=== PATIENT | female | born 1930 | race Caucasian/White ===

== ENCOUNTER → 2016-12-26 | Outpatient (CLI) | payer MEDICARE | END | disposition home or self-care (01) | LOC: RADECHMAIN 11:58 | PROVIDERS: ATTEND Internal Medicine | DX: I44.0 Atrioventricular block, first degree (principal); R00.1 Bradycardia, unspecified; R00.0 Tachycardia, unspecified | CPT/HCPCS: 93225; 93226 ==

== ENCOUNTER 2017-03-11 18:32 | Inpatient (IN) | payer MEDICARE ==
[2017-03-11] MEDS ORDERED: SODIUM CHLORIDE 0.9% 1,000 ML IV STA (18:50)
[2017-03-11] MEDS ORDERED: SODIUM CHLORIDE 0.9% 500 ML IV STA ×2 (18:50→19:36)
--- NOTE | 2017-03-11 18:53 | ED ---
Syncope HPI - General Source: patient, family, RN notes reviewed Mode of arrival: wheelchair Limitations: no limitations - History of Present Illness MD Complaint: loss of consciousness, felt faint <Karan Nascimento - Last Filed: 03/11/17 20:47> <Ramakrishna Donohue - Last Filed: 03/11/17 23:02> - General Chief Complaint: Dizziness Stated Complaint: syncope, Time Seen by Provider: 03/11/17 18:42 - History of Present Illness Initial Comments: This is a 86-year-old female with a history of prior episodes of passing out also history of a mastectomy about 5 years ago history of chemo or radiation with that who was at [facility]. She got out of the bathroom a.m. possibly passed out. She has no recall of this. She does not recall any headache dizziness blurry vision palpitations or other symptoms she was brought in by private vehicle by her patient is had no symptoms since no complaints of focal weakness headache blurry vision. She did take her medication today and an empty stomach. It is unclear per of this had anything to do with it. (Karan Nascimento) - Related Data Home Medications Medication Instructions Recorded Confirmed Aspirin EC [Ecotrin Low Dose] 81 mg PO DAILY 03/11/17 03/11/17 Cyanocobalamin [Vitamin B-12 1,000 mcg SQ WE 03/11/17 03/11/17 Injection] Cyanocobalamin [Vitamin B-12] 500 mcg PO DAILY 03/11/17 03/11/17 Levothyroxine Sodium [Synthroid] 125 mcg PO DAILY 03/11/17 03/11/17 Multivitamins, Thera [Multivitamin 1 tab PO DAILY 03/11/17 03/11/17 (formulary)] Allergies Allergy/AdvReac Type Severity Reaction Status Date / Time meperidine [From Demerol] Allergy Rash/Hives Verified 03/11/17 19:09 Review of Systems ROS Other: All systems not noted in ROS Statement are negative. <Karan Nascimento - Last Filed: 03/11/17 20:47> ROS Other: All systems not noted in ROS Statement are negative. <Ramakrishna Donohue - Last Filed: 03/11/17 23:02> ROS Statement: Those systems with pertinent positive or pertinent negative responses have been documented in the HPI. Past Medical History Past Medical History: Thyroid Disorder History of Any Multi-Drug Resistant Organisms: None Reported Past Surgical History: Hysterectomy Additional Past Surgical History / Comment(s): left masectomy Past Psychological History: No Psychological Hx Reported Smoking Status: Never smoker Past Alcohol Use History: None Reported Past Drug Use History: None Reported <Karan Nascimento - Last Filed: 03/11/17 20:47> General Exam Limitations: no limitations General appearance: alert, in no apparent distress Head exam: Present: atraumatic, normocephalic, normal inspection Eye exam: Present: normal appearance, PERRL, EOMI. Absent: scleral icterus, conjunctival injection, periorbital swelling ENT exam: Present: mucous membranes dry Neck exam: Present: normal inspection. Absent: tenderness, meningismus, lymphadenopathy Respiratory exam: Present: normal lung sounds bilaterally. Absent: respiratory distress, wheezes, rales, rhonchi, stridor Cardiovascular Exam: Present: regular rate, normal rhythm, normal heart sounds. Absent: systolic murmur, diastolic murmur, rubs, gallop, clicks GI/Abdominal exam: Present: soft, normal bowel sounds. Absent: distended, tenderness, guarding, rebound, rigid Extremities exam: Present: normal inspection, full ROM, normal capillary refill. Absent: tenderness, pedal edema, joint swelling, calf tenderness Back exam: Present: normal inspection Neurological exam: Present: alert, oriented X3, CN II-XII intact Psychiatric exam: Present: normal affect, normal mood Skin exam: Present: warm, dry, intact, normal color. 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 Donohue who will make about disposition (Karan Nascimento) EKG Findings - EKG Results: EKG: interpreted by ERMD, sinus rhythm (Sinus rhythm a rate of 67 DC interval 156 QRS 132 QT since QTC of 426/450 with exodeviation right bundle-branch block no acute ST-T wave changes.) <Karan Nascimento - Last Filed: 03/11/17 20:47> Medical Decision Making - Lab Data Result diagrams: 03/11/17 19:00 03/11/17 19:00 <Karan Nascimento - Last Filed: 03/11/17 20:47> - Lab Data Result diagrams: 03/11/17 19:00 03/11/17 19:00 - Radiology Data Radiology results: report reviewed (Computed tomography scan of the brain shows no acute process.), image reviewed (Chest x-ray shows no acute process) <Ramakrishna Donohue - Last Filed: 03/11/17 23:02> - Medical Decision Making Patient reevaluated and resting comfortably in bed. Patient symptom-free at this time. Patient was at [facility] and got up to use the restroom. Patient then passed out. Some onset. Patient does not recall the episode and does not have symptoms prior to this. Case was discussed in detail with Dr. Hargrove, who will admit for Dr. Chen. She recommends cardiology consult, no neurology consult at this time however would like EEG and CT of the neck. Patient and family were updated. (Ramakrishna Donohue) - Lab Data Lab Results 03/11/17 03/11/17 03/11/17 Range/Units 19:00 19:00 19:00 WBC 7.3 (3.8-10.6) k/uL RBC 4.69 (3.80-5.40) m/uL Hgb 14.4 (11.4-16.0) gm/dL Hct 40.8 (34.0-46.0) % MCV 87.0 (80.0-100.0) fL MCH 30.6 (25.0-35.0) pg MCHC 35.2 (31.0-37.0) g/dL RDW 12.9 (11.5-15.5) % Plt Count 306 (150-450) k/uL Neutrophils % 41 % Lymphocytes % 38 % Monocytes % 8 % Eosinophils % 7 % Basophils % 1 % Neutrophils # 3.0 (1.3-7.7) k/uL Lymphocytes # 2.8 (1.0-4.8) k/uL Monocytes # 0.6 (0-1.0) k/uL Eosinophils # 0.5 (0-0.7) k/uL Basophils # 0.1 (0-0.2) k/uL Sodium 135 L (137-145) mmol/L Potassium 4.6 (3.5-5.1) mmol/L Chloride 102 (98-107) mmol/L Carbon Dioxide 22 (22-30) mmol/L Anion Gap 11 mmol/L BUN 27 H (7-17) mg/dL Creatinine 1.44 H (0.52-1.04) mg/dL Est GFR (MDRD) Af Amer 42 (>60 ml/min/1.73 sqM) Est GFR (MDRD) Non-Af 35 (>60 ml/min/1.73 sqM) Glucose 115 H (74-99) mg/dL POC Glucose (mg/dL) (75-99) mg/dL POC Glu Liquid Hydrogen Plant Operator ID Calcium 9.9 (8.4-10.2) mg/dL Magnesium 2.2 (1.6-2.3) mg/dL Total Bilirubin 0.4 (0.2-1.3) mg/dL AST 24 (14-36) U/L ALT 41 (9-52) U/L Alkaline Phosphatase 62 (38-126) U/L Total Creatine Kinase 30 (30-135) U/L CK-MB (CK-2) 0.3 (0.0-2.4) ng/mL CK-MB (CK-2) Rel Index 1.0 Troponin I <0.012 (0.000-0.034) ng/mL Total Protein 7.2 (6.3-8.2) g/dL Albumin 4.0 (3.5-5.0) g/dL Urine Color Urine Appearance (Clear) Urine pH (5.0-8.0) Ur Specific [place] (1.001-1.035) Urine Protein (Negative) Urine Glucose (UA) (Negative) Urine Ketones (Negative) Urine Blood (Negative) Urine Nitrite (Negative) Urine Bilirubin (Negative) Urine Urobilinogen (<2.0) mg/dL Ur Leukocyte Esterase (Negative) Urine RBC (0-5) /hpf Urine WBC (0-5) /hpf Ur Squamous Epith Cells (0-4) /hpf Urine Bacteria (None) /hpf Hyaline Casts (0-2) /lpf Urine Mucus (None) /hpf 03/11/17 03/11/17 Range/Units 19:03 21:10 WBC (3.8-10.6) k/uL RBC (3.80-5.40) m/uL Hgb (11.4-16.0) gm/dL Hct (34.0-46.0) % MCV (80.0-100.0) fL MCH (25.0-35.0) pg MCHC (31.0-37.0) g/dL RDW (11.5-15.5) % Plt Count (150-450) k/uL Neutrophils % % Lymphocytes % % Monocytes % % Eosinophils % % Basophils % % Neutrophils # (1.3-7.7) k/uL Lymphocytes # (1.0-4.8) k/uL Monocytes # (0-1.0) k/uL Eosinophils # (0-0.7) k/uL Basophils # (0-0.2) k/uL Sodium (137-145) mmol/L Potassium (3.5-5.1) mmol/L Chloride (98-107) mmol/L Carbon Dioxide (22-30) mmol/L Anion Gap mmol/L BUN (7-17) mg/dL Creatinine (0.52-1.04) mg/dL Est GFR (MDRD) Af Amer (>60 ml/min/1.73 sqM) Est GFR (MDRD) Non-Af (>60 ml/min/1.73 sqM) Glucose (74-99) mg/dL POC Glucose (mg/dL) 113 H (75-99) mg/dL POC Glu Liquid Hydrogen Plant Operator ID McDaid, Kandis Calcium (8.4-10.2) mg/dL Magnesium (1.6-2.3) mg/dL Total Bilirubin (0.2-1.3) mg/dL AST (14-36) U/L ALT (9-52) U/L Alkaline Phosphatase (38-126) U/L Total Creatine Kinase (30-135) U/L CK-MB (CK-2) (0.0-2.4) ng/mL CK-MB (CK-2) Rel Index Troponin I (0.000-0.034) ng/mL Total Protein (6.3-8.2) g/dL Albumin (3.5-5.0) g/dL Urine Color Yellow Urine Appearance Clear (Clear) Urine pH 5.5 (5.0-8.0) Ur Specific [place] 1.014 (1.001-1.035) Urine Protein Negative (Negative) Urine Glucose (UA) Negative (Negative) Urine Ketones Trace H (Negative) Urine Blood Negative (Negative) Urine Nitrite Negative (Negative) Urine Bilirubin Negative (Negative) Urine Urobilinogen <2.0 (<2.0) mg/dL Ur Leukocyte Esterase Trace H (Negative) Urine RBC <1 (0-5) /hpf Urine WBC 2 (0-5) /hpf Ur Squamous Epith Cells <1 (0-4) /hpf Urine Bacteria Occasional H (None) /hpf Hyaline Casts 4 H (0-2) /lpf Urine Mucus Rare H (None) /hpf Disposition <Karan Nascimento - Last Filed: 03/11/17 20:47> <Ramakrishna Donohue - Last Filed: 03/11/17 23:02> Clinical Impression: Syncope Disposition: ADMITTED IP TO THIS HOSP Referrals: Caden Chen MD [Primary Care Provider] - 1-2 days
[2017-03-11 19:05] LABS: Glucose,Whole Blood 113 mg/dL (75-99)
[2017-03-11 19:10] LABS: Basophils # (A) 0.1 k/uL (0-0.2); Basophils % (A) 1 %; CH 30.5; CHCM 35.2; Eosinophils # (A) 0.5 k/uL (0-0.7); Eosinophils % (A) 7 %; HCT 40.8 % (34.0-46.0); HDW 2.78; HGB 14.4 gm/dL (11.4-16.0); Luc % (Auto) 4; Lymphocytes # (A) 2.8 k/uL (1.0-4.8); Lymphocytes % (A) 38 %; MCH 30.6 pg (25.0-35.0); MCHC 35.2 g/dL (31.0-37.0); Mean Platelet Volume 6.6; Monocytes # (A) 0.6 k/uL (0-1.0); Monocytes % (A) 8 %; Neutrophils % (A) 41 %; RBC 4.69 m/uL (3.80-5.40); RDW 12.9 % (11.5-15.5); WBC 7.3 k/uL (3.8-10.6); WBC (Perox) 7.15
[2017-03-11 19:21] LABS: Calcium 9.9 mg/dL (8.4-10.2); Magnesium 2.2 mg/dL (1.6-2.3); Potassium 4.6 mmol/L (3.5-5.1); Total Bilirubin 0.4 mg/dL (0.2-1.3); Total Protein 7.2 g/dL (6.3-8.2)
[2017-03-11 19:33] LABS: Creatine Kinase 30 U/L (30-135)
[2017-03-11 19:44] LABS: Creatine Kinase MB 0.3 ng/mL (0.0-2.4); Troponin I <0.012 ng/mL (0.000-0.034)
--- NOTE | 2017-03-11 19:53 | XR ---
EXAMINATION TYPE: XR chest 2V DATE OF EXAM: 03/11/2017 COMPARISON: Prior chest x-ray 01/17/2013 HISTORY: Cough and weakness TECHNIQUE: Frontal and lateral views of the chest are obtained. FINDINGS: Technique is apical lordotic and rotated. There is no focal air space opacity, pleural effu omid, or pneumothorax seen. The cardiac silhouette size is thought to be stable, rotation may accent uate the appearance. The osseous structures are intact. IMPRESSION: No acute cardiopulmonary process. Difficult to exclude cardiomegaly.
--- NOTE | 2017-03-11 20:22 | CT ---
EXAMINATION TYPE: CT brain wo con DATE OF EXAM: 03/11/2017 COMPARISON: Prior head CT 08/25/2012 HISTORY: Dizziness and syncope. CT DLP: 949.40 mGycm Automated exposure control for dose reduction was used. Helical imaging through the brain. FINDINGS: Exam is stable. There is extensive cortical atrophy, cerebral vascular calcifications are present. Pe riventricular white matter shows patchy low attenuation. There is no hemorrhage or hydrocephalus. The calvarium is intact. 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 IMPRESSION: NO ACUTE ABNORMALITY.
[2017-03-11 21:20] LABS: Appearance,Urine Clear (Clear); Bacteria,Urine Occasional /hpf; Bilirubin,Urine Negative (Negative); Glucose,Urine (UA) Negative (Negative); Ketones,Urine Trace (Negative); Leukocyte Esterase,Urine Trace (Negative); Mucus,Urine Rare /hpf; Nitrite,Urine Negative (Negative); PH, Urine 5.5 (5.0-8.0); Particle Count 8498; Protein,Urine Negative (Negative); RBC,Urine <1 /hpf (0-5); Specific Gravity,Urine 1.014 (1.001-1.035); Squamous Epithelial Cell,Urine <1 /hpf (0-4); UA Billing (MACRO vs. MICRO) MICRO; Urobilinogen,Urine <2.0 mg/dL (<2.0); WBC,Urine 2 /hpf (0-5)
[2017-03-11] MEDS ORDERED: NALOXONE 0.4 MG/ML 1 ML VIAL IV PRN (23:03)
[2017-03-11] MEDS ORDERED: RX INFO: IV CONTRAST WAS GIVEN 1 EACH MISC MISCELLANE PRN (23:04)
--- NOTE | 2017-03-11 23:55 | CT ---
EXAM: CT Angiography Neck With Intravenous Contrast CLINICAL HISTORY: Reason: syncope TECHNIQUE: Axial computed tomographic angiography images of the neck with intravenous contrast using CT angiography protocol. This CT exam was performed using one or more of the following dose reduction techniques: automated exposure control, adjustment of the mA and/or kV according to patient size, and/or use of iterative reconstruction technique. MIP reconstructed images were created and reviewed. Dose Length Product (DLP) is 228.90 mGy-cm. CONTRAST: 80 mL of Visipaque 320 administered intravenously. COMPARISON: No relevant prior studies available. FINDINGS: VASCULATURE: Right common carotid artery: Unremarkable. No significant stenosis. No dissection or occlusion. 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 There is osseous remodeling of the adjacent right temporal bone. Large atherosclerotic plaques are seen around the aneurysm sac. Extracranial segment is patent with no significant stenosis. No dissection or occlusion. Right external carotid artery: Unremarkable. No occlusion. Right vertebral artery: Unremarkable. No significant stenosis. No dissection or occlusion. Left common carotid artery: Unremarkable. No significant stenosis. No dissection or occlusion. Left internal carotid artery: Unremarkable. Extracranial segment is patent with no significant stenosis. No dissection or occlusion. Left external carotid artery: Unremarkable. No occlusion. Left vertebral artery: Unremarkable. No significant stenosis. No dissection or occlusion. NECK: Bones/joints: No acute fracture. No dislocation. Soft tissues: Unremarkable as visualized. No mass. CAROTID STENOSIS REFERENCE USING NASCET CRITERIA: % ICA stenosis = (1 - narrowest ICA diameter/diameter of distal cervical ICA) x 100. Mild - <50% stenosis. Moderate - 50-69% stenosis. Severe - 70-94% stenosis. Near occlusion - 95-99% stenosis. Occluded - 100% stenosis. 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
[2017-03-12 00:39] VITALS: BMI 24.4
[2017-03-12] MEDS: SODIUM CHLORIDE 0.9% 1,000 ML IV SCH (00:58)
[2017-03-12 02:35] LABS: Creatine Kinase 23 U/L (30-135)
[2017-03-12 02:47] LABS: Creatine Kinase MB 0.3 ng/mL (0.0-2.4); Troponin I <0.012 ng/mL (0.000-0.034)
[2017-03-12 06:30] LABS: Anion Gap 7 mmol/L; Blood Urea Nitrogen 20 mg/dL (7-17); Calcium 9.2 mg/dL (8.4-10.2); Carbon Dioxide 17 mmol/L (22-30); Chloride 111 mmol/L (98-107); Glucose 93 mg/dL (74-99); Non-African American GFR(MDRD) 53 (>60 ml/min/1.73 sqM); Potassium 4.3 mmol/L (3.5-5.1); Sodium 135 mmol/L (137-145)
[2017-03-12 06:35] LABS: Creatine Kinase 23 U/L (30-135)
[2017-03-12 06:47] LABS: Creatine Kinase MB 0.3 ng/mL (0.0-2.4); Troponin I <0.012 ng/mL (0.000-0.034)
--- NOTE | 2017-03-12 09:12 | P.CRDCN ---
History of Present Illness Consult date: 03/12/17 Consult reason: sycope History of present illness: 86-year-old lady with history of mild dementia comes to Hospital having had an episode of syncope. Patient was at [facility] yesterday she went to the bathroom and was brought back probably having had a syncope is not quite sure not raised the the patient. There is no bladder bowel incontinence she doesn't have chest pain she doesn't have focal neurological deficits EKG shows sinus rhythm with right bundle branch block. Since being admitted she is doing well and did not have documented tachycardia or bradycardia arrhythmias. Review of Systems Constitutional: Denies chills. Denies fever. Eyes: Denies blurred vision. Denies pain. Ears, nose, mouth and throat: Denies headache. Denies sore throat. Cardiovascular: Denies chest pain. Denies shortness of breath. Respiratory: Denies cough. Gastrointestinal: Denies abdominal pain. Denies diarrhea. Denies nausea. Denies vomiting. Musculoskeletal: Denies myalgias. Integumentary: Denies pruritus. Denies rash. Neurological: Denies numbness. Denies weakness. Syncope impaired memory Psychiatric: Denies anxiety. Denies depression. Endocrine: Denies fatigue. Denies weight change. Genitourinary: Denies burning, hematuria, frequency of urination. Hematological: No anemia or excess bleeding. Past Medical History Past Medical History: Cancer, Thyroid Disorder Additional Past Medical History / Comment(s): Breast History of Any Multi-Drug Resistant Organisms: None Reported Past Surgical History: Hysterectomy Additional Past Surgical History / Comment(s): left masectomy Past Anesthesia/Blood Transfusion Reactions: No Reported Reaction Past Psychological History: No Psychological Hx Reported Smoking Status: Never smoker Past Alcohol Use History: None Reported Past Drug Use History: None Reported - Past Family History Father Family Medical History: Cancer Additional Family Medical History / Comment(s): Lung Mother Family Medical History: Cancer Additional Family Medical History / Comment(s): Colon metastasize to liver Sister(s) Family Medical History: Cancer Additional Family Medical History / Comment(s): Breast Medications and Allergies Home Medications Medication Instructions Recorded Confirmed Type Aspirin EC [Ecotrin Low Dose] 81 mg PO DAILY 03/11/17 03/11/17 History Cyanocobalamin [Vitamin B-12 1,000 mcg SQ WE 03/11/17 03/11/17 History Injection] Cyanocobalamin [Vitamin B-12] 500 mcg PO DAILY 03/11/17 03/11/17 History Levothyroxine Sodium [Synthroid] 125 mcg PO DAILY 03/11/17 03/11/17 History Multivitamins, Thera [Multivitamin 1 tab PO DAILY 03/11/17 03/11/17 History (formulary)] Allergies Allergy/AdvReac Type Severity Reaction Status Date / Time meperidine [From Demerol] Allergy Rash/Hives Verified 03/11/17 19:09 Physical Exam Vitals: Vital Signs Temp Pulse Pulse Pulse Pulse Resp BP 03/12/17 08:00 96.8 F L 76 18 03/12/17 07:55 03/12/17 04:00 97.2 F L 89 20 03/12/17 00:14 98.6 F 72 18 03/11/17 22:51 66 16 142/77 03/11/17 20:41 71 18 152/55 03/11/17 19:40 62 68 03/11/17 18:37 98.2 F 69 16 131/64 BP BP BP Pulse Ox 03/12/17 08:00 143/64 98 03/12/17 07:55 98 03/12/17 04:00 160/72 95 03/12/17 00:14 137/61 97 03/11/17 22:51 96 03/11/17 20:41 96 03/11/17 19:40 114/63 119/58 03/11/17 18:37 97 Intake and Output 03/11/17 03/12/17 03/12/17 22:59 06:59 14:59 Intake Total 450 180 Balance 450 180 Intake: IV 450 Sodium Chloride 0.9% 1, 450 000 ml @ 75 mls/hr IV . [id number] STA Rx#:[id number] Oral 180 Other: Voiding Method Toilet # Voids 2 Weight 63.503 kg 64.6 kg General: The patient is awake and alert, in no distress, and does not appear acutely ill. Skin: Skin is warm and dry and no rashes or lesions are noted. Eye: Pupils are equal, round and reactive to light, extra-ocular movements are intact; there is normal conjunctiva bilaterally. Ears, nose, mouth and throat: There are moist mucous membranes and no oral lesions. Neck: The neck is supple, there is no tenderness or JVD. Cardiovascular: There is a regular rate and rhythm. Ejection systolic murmur in the aortic area. Respiratory: Lungs are clear to auscultation, respirations are non-labored, breath sounds are equal. Gastrointestinal: Soft, non-distended, non-tender abdomen without masses or organomegaly noted. There is no rebound or guarding present. Bowel sounds are unremarkable. Back: There is no tenderness to palpation in the midline. There is no obvious deformity. Musculoskeletal: Normal ROM, no tenderness, There is no pedal edema. There is no calf tenderness or swelling. Extremities: No edema. Vascular: Femoral pulse is normal. Posterior tibial pulses are normal .Dorsalis pedis is palpable. Neurological: CN II-XII intact. There are no obvious motor or sensory deficits. Speech is normal. Psychiatric: Cooperative, pleasantly confused. Results 03/11/17 19:00 03/12/17 05:54 Cardiac Enzymes 03/11/17 03/11/17 03/12/17 Range/Units 19:00 19:00 01:15 AST 24 (14-36) U/L CK-MB (CK-2) 0.3 0.3 (0.0-2.4) ng/mL Troponin I <0.012 <0.012 (0.000-0.034) ng/mL 03/12/17 Range/Units 05:54 AST (14-36) U/L CK-MB (CK-2) 0.3 (0.0-2.4) ng/mL Troponin I <0.012 (0.000-0.034) ng/mL CBC 03/11/17 Range/Units 19:00 WBC 7.3 (3.8-10.6) k/uL RBC 4.69 (3.80-5.40) m/uL Hgb 14.4 (11.4-16.0) gm/dL Hct 40.8 (34.0-46.0) % Plt Count 306 (150-450) k/uL Comprehensive Metabolic Panel 03/11/17 03/12/17 Range/Units 19:00 05:54 Sodium 135 L 135 L (137-145) mmol/L Potassium 4.6 4.3 (3.5-5.1) mmol/L Chloride 102 111 H (98-107) mmol/L Carbon Dioxide 22 17 L (22-30) mmol/L BUN 27 H 20 H (7-17) mg/dL Creatinine 1.44 H 1.00 (0.52-1.04) mg/dL Glucose 115 H 93 (74-99) mg/dL Calcium 9.9 9.2 (8.4-10.2) mg/dL AST 24 (14-36) U/L ALT 41 (9-52) U/L Alkaline Phosphatase 62 (38-126) U/L Total Protein 7.2 (6.3-8.2) g/dL Albumin 4.0 (3.5-5.0) g/dL Current Medications Generic Name Dose Route Start Last Admin Trade Name Freq PRN Reason Stop Dose Admin Sodium Chloride 1,000 mls @ 20 mls/hr 03/11/17 23:15 03/12/17 00:58 Saline 0.9% IV Not Given .Q24H PATRICA Miscellaneous Information 1 each 03/11/17 23:04 Rx Info: Iv Contrast Was Given MISCELLANE 03/13/17 23:04 DAILY PRN Per Protocol Naloxone HCl 0.2 mg 03/11/17 23:03 Narcan IV Q2M PRN Opioid Reversal Intake and Output 03/11/17 03/12/17 03/12/17 22:59 06:59 14:59 Intake Total 450 180 Balance 450 180 Intake: IV 450 Sodium Chloride 0.9% 1, 450 000 ml @ 75 mls/hr IV . [id number] STA Rx#:[id number] Oral 180 Other: Voiding Method Toilet # Voids 2 Weight 63.503 kg 64.6 kg 03/11/17 19:00 03/12/17 05:54 EKG Interpretations (text) Normal sinus rhythm with right bundle branch block and left axis deviation Assessment and Plan Plan: Syncope rule out cardiac causes So far cardiac workup is negative. Patient did not have cardiac arrhythmia or bradycardia. Myocardial infarction is ruled out. She appears stable hemodynamically. I'm going to obtain orthostatics on her. I will obtain a 2-D echo and carotid duplex if they have not been done. We certainly have to consider bradycardia as an etiology for her symptomatology and we will consider outpatient Holter or event monitor and if necessary a loop recorder implantation.
[2017-03-12 10:38] LABS: Appearance,Urine Clear (Clear); Bilirubin,Urine Negative (Negative); Glucose,Urine (UA) 2+ (Negative); Ketones,Urine Negative (Negative); Leukocyte Esterase,Urine Negative (Negative); Nitrite,Urine Negative (Negative); PH, Urine 5.5 (5.0-8.0); Protein,Urine Negative (Negative); Specific Gravity,Urine 1.015 (1.001-1.035); UA Billing (MACRO vs. MICRO) CHEM; Urobilinogen,Urine <2.0 mg/dL (<2.0)
--- NOTE | 2017-03-12 12:58 | CONS ---
DATE OF CONSULTATION: 03/12/2017 This is 86-year-old female, she has been admitted to [facility] with a history of passing-out spells. This happened at home. The patient had no history of loss of vision or any motor deficits. No history of headache or blurry vision. The patient had a stroke workup and cardiac workup. CT scan of the carotid shows there is a 1.3 cm at the petrous portion of the brain were obtained. There is no hemodynamically significant stenoses are noted. The patient also had a cardiac workup and patient is scheduled to have a echocardiogram and a cardiac work up. EXAMINATION: Patient was seen in her room. NECK: Supple. No bruit appreciated. CHEST: Clear to auscultation. First and second sounds are normal. Vascular exam: Brachy radial and femoral pulses present. Central nervous system: The patient has normal motor function upper and lower extremity. PLAN: We will discuss with Internal Medicine and with the family of the patient. The patient has a 1.2 cm of the internal carotid, the petrous portion of the brain and if family agrees we will consider having a opinion from the general farm manager neurologist if patient needs any kind of just stent placement for this aneurysm. At this point , there is no role of surgical indication for the internal carotid artery. Most likely if patient agrees would benefit from internal carotid artery stent placement. When patient is stable enough, we will follow in my office and then we will make arrangements to tertiary center. Thank you very much. SAMRA / JOSE FN: [id number] / [id number]
--- NOTE | 2017-03-12 14:26 | P.HPIM ---
History of Present Illness H&P Date: 03/12/17 Chief Complaint: Syncope This is an 86-year-old pleasant lady patient of Dr. Caden Ray. She has underlying history of hypothyroidism, neurocognitive degenerative disease of the brain, with significant memory loss, left breast cancer with mastectomy in the past admitted to the hospital secondary to acute episode of syncope. Patient was in congregational heading to the bathroom, the next thing the knows was patient was being helped out in the hallway, with cold sweats and was unresponsive. Two-person carrying her at the time, does not recollect any information was passed on by the [email or web address] rescue people. No CPR was provided or was needed, and was subsequently sent to emergency room for evaluation. Patient had multiple episodes of syncope in the past, this would be her fifth one in her entire life, her last seizure besides this one was in wintertime in [place], she also had been seeing Dr. Samaniego for her memory loss patient cannot provide any meaningful memory as to the events preceding to the syncope. Patient denies any trauma no chest pain. Patient was evaluated in the past to include an MRI in the brain, and a 48 hour Holter monitor performed December 26, [address] Ray for which there is no pauses noted, minimum heart rate was 41 , 45% of recordings are bradycardia there is no QT prolongation rare PVCs bigeminy and trigeminy noted on the 48 hour Holter monitor. Patient denies any diarrhea no new medication changes no diplopia no motor deficits, including speech. Review of Systems Constitutional: Reports as per HPI, Denies anorexia, Denies chills, Denies chronic headaches, Denies chronic pain, Denies daytime sleepiness, Denies fatigue, Denies fever, Denies lethargy, Denies malaise, Denies night sweats, Denies poor appetite, Denies sweats, Denies weakness, Denies weight gain, Denies weight loss Ears, nose, mouth and throat: Reports as per HPI, Denies ant. neck pain, Denies bleeding gums, Denies dental pain, Denies dysphagia, Denies epistaxis, Denies headache, Denies hoarseness, Denies mouth pain, Denies nasal congestion, Denies nasal discharge, Denies neck fullness/pressure, Denies neck lump, Denies nose pain, Denies odynophagia, Denies post-nasal drip, Denies sinus pain, Denies sinus pressure, Denies swelling in mouth, Denies swelling in throat, Denies sore throat, Denies vertigo, Denies voice changes Cardiovascular: Reports as per HPI, Reports syncope, Denies chest pain, Denies claudication, Denies decreased exercise tolerance, Denies dyspnea on exertion, Denies edema, Denies high blood pressure, Denies irregular heart beat, Denies leg edema, Denies lightheadedness, Denies orthopnea, Denies palpitations, Denies paroxysmal nocturnal dyspnea, Denies phlebitis, Denies rapid heart beat, Denies shortness of breath Respiratory: Reports as per HPI, Denies congestion, Denies cough, Denies cough with sputum, Denies dyspnea, Denies excessive sputum, Denies hemoptysis, Denies home oxygen, Denies pain, Denies pain on inspiration, Denies pleurisy, Denies respiratory infections, Denies sleep apnea, Denies snoring, Denies wheezing Gastrointestinal: Reports as per HPI, Denies abdominal pain, Denies belching, Denies bloating, Denies BRBPR, Denies change in bowel habits, Denies coffee ground emesis, Denies constipation, Denies diarrhea, Denies dyspepsia, Denies early satiety, Denies excessive gas, Denies heartburn, Denies hematemesis, Denies hematochezia, Denies indigestion, Denies jaundice, Denies lactose intolerance, Denies loss of appetite, Denies melena, Denies nausea, Denies vomiting Genitourinary: Reports as per HPI, Denies abnormal vaginal bleeding, Denies decreased libido, Denies difficulty conceiving, Denies difficulty voiding, Denies dysmenorrhea, Denies dyspareunia, Denies dysuria, Denies flank pain, Denies genital sores, Denies hematuria, Denies hot flashes, Denies incomplete emptying, Denies kidney stones, Denies menorrhagia, Denies mixed incontinence, Denies nocturia, Denies pelvic pain, Denies post void dribbling, Denies , Denies prolapse symptoms, Denies stress incontinence, Denies urge incontinence , Denies urgency, Denies urinary frequency, Denies vaginal discharge, Denies vaginal dryness, Denies vaginal itching, Denies vaginal odor Menstruation: Reports as per HPI, Denies amenorrhea, Denies amenorrhea on BC, Denies currently menstrual, Denies cycle < 21 days, Denies cycle > 35 days, Denies cycle variable, Denies menses 1-7 days, Denies menses 8 or > days, Denies menses variable, Denies period heavy, Denies period light, Denies period normal, Denies period spotting, Denies post hysterectomy, Denies postmenopausal , Denies premenarcheal Musculoskeletal: Reports as per HPI, Denies arm numbness/tingling, Denies atrophy, Denies fractures, Denies frequent falls, Denies gait dysfunction, Denies hot joints, Denies leg numbness/tingling, Denies limitation of motion, Denies loss of height, Denies low back pain, Denies morning stiffness, Denies muscle cramps, Denies muscle weakness, Denies myalgias, Denies neck pain, Denies neck stiffness, Denies prior amputations, Denies redness of joints, Denies shooting arm pain, Denies shooting leg pain Integumentary: Reports as per HPI, Denies acne, Denies boils, Denies brittle nails, Denies change in hair/nails, Denies color changes, Denies darkening of skin, Denies depigmentation, Denies dryness, Denies foot/leg ulcers, Denies growths, Denies hirsutism, Denies lesions, Denies onychomycosis, Denies pruritus , Denies rash, Denies sores, Denies striae, Denies unusual bruising, Denies wounds Neurological: Reports as per HPI, Reports syncope, Denies aphasia, Denies ataxia , Denies balance difficulties, Denies burning pain, Denies change in mentation, Denies change in smell/taste, Denies change in speech, Denies confusion, Denies convulsions, Denies double vision, Denies gait dysfunction, Denies head injury, Denies headaches, Denies hearing difficulties, Denies lack of coordination, Denies loss of vision, Denies memory loss, Denies migraines, Denies motor disturbance, Denies numbness, Denies paralysis, Denies paresthesias, Denies seizures, Denies sensory deficit, Denies spasticity, Denies tic, Denies tingling , Denies transient paralysis, Denies tremors, Denies vertigo, Denies weakness, Denies visual changes Psychiatric: Reports as per HPI, Denies anhedonia, Denies anxiety, Denies anxiety attacks, Denies change in appetite, Denies change in libido, Denies change in sleep habits, Denies confusion, Denies depression, Denies difficulty concentrating, Denies disorientation, Denies hallucinations, Denies hopelessness , Denies hypersomnia, Denies insomnia, Denies irritability, Denies memory loss, Denies mood swings, Denies paranoia, Denies sadness/tearfulness, Denies sleep disturbances, Denies suicidal ideation Endocrine: Reports as per HPI, Denies cold intolerance, Denies deepening of the voice, Denies excessive sweating, Denies excessive thirst, Denies fatigue, Denies flushing, Denies heat intolerance, Denies high blood sugars, Denies increase in ring/shoe/hat size, Denies low blood sugars, Denies nocturia, Denies palpitations, Denies polydipsia, Denies polyphagia, Denies polyuria, Denies proptosis, Denies recent glucocorticoid use, Denies thyroid mass, Denies weight change Hematologic/Lymphatic: Reports as per HPI, Denies easy bleeding, Denies easy bruising, Denies lymphadenopathy, Denies lymphedema, Denies thrombophilia Allergic/Immunologic: Reports as per HPI, Denies allergic rhinitis, Denies anaphylaxis, Denies angioedema, Denies gluten intolerance, Denies persistent infections, Denies seasonal allergies, Denies urticaria, Denies wheezing Past Medical History Past Medical History: Cancer, Thyroid Disorder Additional Past Medical History / Comment(s): Breast History of Any Multi-Drug Resistant Organisms: None Reported Past Surgical History: Hysterectomy Additional Past Surgical History / Comment(s): left masectomy Past Anesthesia/Blood Transfusion Reactions: No Reported Reaction Past Psychological History: No Psychological Hx Reported Smoking Status: Never smoker Past Alcohol Use History: None Reported Past Drug Use History: None Reported - Past Family History Father Family Medical History: Cancer (Lung) Additional Family Medical History / Comment(s): Lung Mother Family Medical History: Cancer (Breast) Additional Family Medical History / Comment(s): Colon metastasize to liver Sister(s) Family Medical History: Cancer Additional Family Medical History / Comment(s): Breast Medications and Allergies Home Medications Medication Instructions Recorded Confirmed Type Aspirin EC [Ecotrin Low Dose] 81 mg PO DAILY 03/11/17 03/11/17 History Cyanocobalamin [Vitamin B-12 1,000 mcg SQ WE 03/11/17 03/11/17 History Injection] Cyanocobalamin [Vitamin B-12] 500 mcg PO DAILY 03/11/17 03/11/17 History Levothyroxine Sodium [Synthroid] 125 mcg PO DAILY 03/11/17 03/11/17 History Multivitamins, Thera [Multivitamin 1 tab PO DAILY 03/11/17 03/11/17 History (formulary)] Allergies Allergy/AdvReac Type Severity Reaction Status Date / Time meperidine [From Demerol] Allergy Rash/Hives Verified 03/11/17 19:09 Physical Exam Vitals: Vital Signs Temp Pulse Pulse Pulse Pulse Resp BP 03/12/17 08:00 96.8 F L 76 18 03/12/17 07:55 03/12/17 04:00 97.2 F L 89 20 03/12/17 00:14 98.6 F 72 18 03/11/17 22:51 66 16 142/77 03/11/17 20:41 71 18 152/55 03/11/17 19:40 62 68 03/11/17 18:37 98.2 F 69 16 131/64 BP BP BP Pulse Ox 03/12/17 08:00 143/64 98 03/12/17 07:55 98 03/12/17 04:00 160/72 95 03/12/17 00:14 137/61 97 03/11/17 22:51 96 03/11/17 20:41 96 03/11/17 19:40 114/63 119/58 03/11/17 18:37 97 Intake and Output 03/11/17 03/12/17 03/12/17 22:59 06:59 14:59 Intake Total 450 Balance 450 Intake: IV 450 Sodium Chloride 0.9% 1, 450 000 ml @ 75 mls/hr IV . [id number] STA Rx#:[id number] Other: Voiding Method Toilet # Voids 2 Weight 63.503 kg 64.6 kg - Constitutional General appearance: average body habitus, cooperative, no acute distress - EENT Eyes: anicteric sclerae, EOMI, PERRLA, dentition normal ENT: NA/AT, normal oropharynx - Neck Neck: no lymphadenopathy, normal ROM, no other, no rigidity, no stridor, no thyromegaly - Respiratory Respiratory: bilateral: CTA, negative: diminished, dullness, rales, rhonchi, wheezing - Cardiovascular Rhythm: regular Heart sounds: normal: S1, S2 Abnormal Heart Sounds: no systolic murmur, no diastolic murmur, no rub, no S3 Gallop, no S4 Gallop, no click, no other - Gastrointestinal General gastrointestinal: normal bowel sounds, soft - Integumentary Integumentary: decreased turgor, normal - Neurologic Neurologic: CNII-XII intact - Musculoskeletal Musculoskeletal: gait normal, strength equal bilaterally - Psychiatric Psychiatric: A&O x's 3 (Significant short-term memory loss), appropriate affect , intact judgment & insight Results CBC & Chem 7: 03/11/17 19:00 03/12/17 05:54 Labs: Abnormal Lab Results - Last 24 Hours (Table) 03/11/17 03/11/17 03/11/17 Range/Units 19:00 19:03 21:10 Sodium 135 L (137-145) mmol/L Chloride (98-107) mmol/L Carbon Dioxide (22-30) mmol/L BUN 27 H (7-17) mg/dL Creatinine 1.44 H (0.52-1.04) mg/dL Glucose 115 H (74-99) mg/dL POC Glucose (mg/dL) 113 H (75-99) mg/dL Total Creatine Kinase (30-135) U/L Urine Ketones Trace H (Negative) Ur Leukocyte Esterase Trace H (Negative) Urine Bacteria Occasional H (None) /hpf Hyaline Casts 4 H (0-2) /lpf Urine Mucus Rare H (None) /hpf 03/12/17 03/12/17 03/12/17 Range/Units 01:15 05:54 05:54 Sodium 135 L (137-145) mmol/L Chloride 111 H (98-107) mmol/L Carbon Dioxide 17 L (22-30) mmol/L BUN 20 H (7-17) mg/dL Creatinine (0.52-1.04) mg/dL Glucose (74-99) mg/dL POC Glucose (mg/dL) (75-99) mg/dL Total Creatine Kinase 23 L 23 L (30-135) U/L Urine Ketones (Negative) Ur Leukocyte Esterase (Negative) Urine Bacteria (None) /hpf Hyaline Casts (0-2) /lpf Urine Mucus (None) /hpf Laboratory Results WBC 7.3 k/uL (3.8-10.6) 03/11/17 19:00 RBC 4.69 m/uL (3.80-5.40) 03/11/17 19:00 Hgb 14.4 gm/dL (11.4-16.0) 03/11/17 19:00 Hct 40.8 % (34.0-46.0) 03/11/17 19:00 MCV 87.0 fL (80.0-100.0) 03/11/17 19:00 MCH 30.6 pg (25.0-35.0) 03/11/17 19:00 MCHC 35.2 g/dL (31.0-37.0) 03/11/17 19:00 RDW 12.9 % (11.5-15.5) 03/11/17 19:00 Plt Count 306 k/uL (150-450) 03/11/17 19:00 Neutrophils % 41 % 03/11/17 19:00 Lymphocytes % 38 % 03/11/17 19:00 Monocytes % 8 % 03/11/17 19:00 Eosinophils % 7 % 03/11/17 19:00 Basophils % 1 % 03/11/17 19:00 Neutrophils # 3.0 k/uL (1.3-7.7) 03/11/17 19:00 Lymphocytes # 2.8 k/uL (1.0-4.8) 03/11/17 19:00 Monocytes # 0.6 k/uL (0-1.0) 03/11/17 19:00 Eosinophils # 0.5 k/uL (0-0.7) 03/11/17 19:00 Basophils # 0.1 k/uL (0-0.2) 03/11/17 19:00 Sodium 135 mmol/L (137-145) L 03/12/17 05:54 Potassium 4.3 mmol/L (3.5-5.1) 03/12/17 05:54 Chloride 111 mmol/L (98-107) H 03/12/17 05:54 Carbon Dioxide 17 mmol/L (22-30) L 03/12/17 05:54 Anion Gap 7 mmol/L 03/12/17 05:54 BUN 20 mg/dL (7-17) H 03/12/17 05:54 Creatinine 1.00 mg/dL (0.52-1.04) 03/12/17 05:54 Est GFR (MDRD) Af Amer >60 (>60 ml/min/1.73 sqM) 03/12/17 05:54 Est GFR (MDRD) Non-Af 53 (>60 ml/min/1.73 sqM) 03/12/17 05:54 Glucose 93 mg/dL (74-99) 03/12/17 05:54 POC Glucose (mg/dL) 113 mg/dL (75-99) H 03/11/17 19:03 POC Glu Small Machine Bindery Operator ID Kandis Franco 03/11/17 19:03 Calcium 9.2 mg/dL (8.4-10.2) 03/12/17 05:54 Magnesium 2.2 mg/dL (1.6-2.3) 03/11/17 19:00 Total Bilirubin 0.4 mg/dL (0.2-1.3) 03/11/17 19:00 AST 24 U/L (14-36) 03/11/17 19:00 ALT 41 U/L (9-52) 03/11/17 19:00 Alkaline Phosphatase 62 U/L (38-126) 03/11/17 19:00 Total Creatine Kinase 23 U/L (30-135) L 03/12/17 05:54 CK-MB (CK-2) 0.3 ng/mL (0.0-2.4) 03/12/17 05:54 CK-MB (CK-2) Rel Index 1.3 03/12/17 05:54 Troponin I <0.012 ng/mL (0.000-0.034) 03/12/17 05:54 Total Protein 7.2 g/dL (6.3-8.2) 03/11/17 19:00 Albumin 4.0 g/dL (3.5-5.0) 03/11/17 19:00 Urine Color Light Yellow 03/12/17 10:05 Urine Appearance Clear (Clear) 03/12/17 10:05 Urine pH 5.5 (5.0-8.0) 03/12/17 10:05 Ur Specific [place] 1.015 (1.001-1.035) 03/12/17 10:05 Urine Protein Negative (Negative) 03/12/17 10:05 Urine Glucose (UA) 2+ (Negative) H 03/12/17 10:05 Urine Ketones Negative (Negative) 03/12/17 10:05 Urine Blood Negative (Negative) 03/12/17 10:05 Urine Nitrite Negative (Negative) 03/12/17 10:05 Urine Bilirubin Negative (Negative) 03/12/17 10:05 Urine Urobilinogen <2.0 mg/dL (<2.0) 03/12/17 10:05 Ur Leukocyte Esterase Negative (Negative) 03/12/17 10:05 Urine RBC <1 /hpf (0-5) 03/11/17 21:10 Urine WBC 2 /hpf (0-5) 03/11/17 21:10 Ur Squamous Epith Cells <1 /hpf (0-4) 03/11/17 21:10 Urine Bacteria Occasional /hpf (None) H 03/11/17 21:10 Hyaline Casts 4 /lpf (0-2) H 03/11/17 21:10 Urine Mucus Rare /hpf (None) H 03/11/17 21:10 Thrombosis Risk Factor Assmnt - DVT/VTE Prophylaxis DVT/VTE Prophylaxis: Mechanical Prophylaxis ordered, Low risk, early ambulation encouraged - Choose All That Apply Any of the Below Risk Factors Present?: No Other Risk Factors: Yes Each Risk Factor Represents 3 Points: Age 75 years or older Thrombosis Risk Factor Assessment Total Risk Factor Score: 3 Thrombosis Risk Factor Assessment Level: Moderate Risk Assessment and Plan Plan: 1. Recurrent syncope, this would be her fifth episode her entire life, patient was seen consultation by cardiology, she follows with Dr. 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 Patient patient is in selective with telemetry monitoring. Patient will be seen by cardiology, most likely would need a loop recorder for a 30 day event monitor, tilt table test. 2. Left breast cancer status post mastectomy the current treatments at this time 3. Hypothyroidism on thyroid supplementation 4. 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 Bedoya was consulted. CTA failed to reveal any significant and internal carotid stenosis 5. Neurocognitive degenerative disease of the brain, follows with Dr. Ward for outpatient, patient is receiving B12 shots as often as every week, patient's off anticholinesterase medications however this agents can also potentiate bradycardia and arrhythmias specially with the use of Aricept, unsure whether the patient had been on an NMDA receptor antagonist such as Namenda 6. 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
[2017-03-12 16:59] VITALS: RESP 18
[2017-03-13 06:01] VITALS: TEMP 97.9
[2017-03-13] MEDS ORDERED: LEVOTHYROXINE 125 MCG TAB PO SCH (06:30)
[2017-03-13] MEDS: SODIUM CHLORIDE 0.9% 1,000 ML IV SCH (06:56)
[2017-03-13] MEDS ORDERED: ASPIRIN 81 MG CHEW PO SCH (09:00)
[2017-03-13] MEDS ORDERED: CYANOCOBALAMIN 500 MCG TAB PO SCH (09:00)
[2017-03-13 09:15] VITALS: BP 131/60; PULSE 85
--- NOTE | 2017-03-13 10:44 | P.PN ---
Subjective Principal diagnosis: Syncope This is a pleasant 86-year-old lady with history of mild dementia. Percentage the hospital with episode of syncope while at [employer] and walking to the bathroom. EKG on admission shows sinus rhythm with right bundle-branch block. Since being admitted she has been doing fairly well. She has had no documented tachycardia or bradycardia. In reviewing vital signs, patient did have some significant drop in blood pressure upon standing with a supine blood pressure of 163/71, blood pressure while sitting of 143/67 and a standing blood pressure of 135/67. Laboratory values showed a TSH of less than 0.015 and a T4 of 2.79, patient is on Synthroid. Echocardiogram has been obtained we're awaiting results at this time. Objective - Vital Signs Vital signs: Vital Signs Temp 97.9 F 03/13/17 08:00 Pulse 68 03/13/17 08:00 Resp 18 03/13/17 08:00 BP 131/60 03/13/17 08:00 Pulse Ox 97 03/13/17 08:00 Intake & Output 03/12/17 03/13/17 03/13/17 18:59 06:59 18:59 Intake Total 330 180 Output Total 250 Balance 80 180 Intake: Oral 330 180 Output: Urine 250 Other: Voiding Method Toilet Toilet # Voids 3 0 - Exam PHYSICAL EXAMINATION: HEENT: Head is atraumatic, normocephalic. Pupils equal, round. Neck is supple. There is no elevated jugular venous pressure. HEART EXAMINATION: Heart sounds regular, S1 and S2 normal with a systolic murmur at the base. CHEST EXAMINATION: Lungs are clear to auscultation and precussion. No chest wall tenderness is noted on palpation or with deep breathing. ABDOMEN: Soft, nontender. Bowel sounds are heard. No organomegaly noted. EXTREMITIES: 2+ peripheral pulses with no evidence of peripheral edema and no calf tenderness noted. NEUROLOGIC patient is awake, alert and pleasantly confused. . - Labs CBC & Chem 7: 03/11/17 19:00 03/12/17 05:54 Labs: Abnormal Lab Results - Last 24 Hours (Table) 03/12/17 Range/Units 05:54 TSH <0.015 L (0.465-4.680) mIU/L Free T4 2.79 H (0.78-2.19) ng/dL Microbiology - Last 24 Hours (Table) 03/12/17 10:05 Urine Culture - Preliminary Urine,Clean Catch Assessment and Plan Plan: Assessment and plan #1 syncope, likely related to orthostatic hypotension #2 dementia From cardiology's perspective, patient was instructed to raise from a sitting position slowly and stand for short time prior to beginning to walk to minimize side effects of orthostatic hypotension. She was recommended to stay well hydrated. We will review the 2-D echo with Doppler when that is available and if this is okay, plan for Follow-up as an outpatient. The above dictated assessment and findings were discussed with signing physician. The impression and plan of care have been directed as dictated. Beth London, Nurse Practitioner, acting as scribe for signing physician.
--- NOTE | 2017-03-13 11:37 | ECHOF ---
Referral Reason:Heart function MEASUREMENTS -------- HEIGHT: 162.6 cm WEIGHT: 64.4 kg BP: 137/67 RVIDd: 2.5 cm (< 3.3) IVSd: 1.2 cm (0.6 - 1.1) LVIDd: 3.9 cm (3.9 - 5.3) LVPWd: 0.8 cm (0.6 - 1.1) IVSs: 1.4 cm LVIDs: 3.1 cm LVPWs: 1.1 cm LA Diam: 2.8 cm (2.7 - 3.8) LAESV Index (A-L): 16.76 ml/m Ao Diam: 3.0 cm (2.0 - 3.7) AV Cusp: 1.5 cm (1.5 - 2.6) MV EXCURSION: 9.306 mm (> 18.000) MV EF SLOPE: 38 mm/s (70 - 150) EPSS: 0.7 cm MV E Teofilo: 0.68 m/s MV DecT: 284 ms MV A Teofilo: 1.24 m/s MV E/A Ratio: 0.55 RAP: 5.00 mmHg RVSP: 14.73 mmHg FINDINGS -------- Sinus rhythm. This was a technically adequate study. The left ventricular size is normal. There is mild concentric left ventricular hypertrophy. Overall left ventricular systolic function is normal with, an EF between 55 - 60 %. The right ventricle is normal in size. Normal LA size by volume 22+/-6 ml/m2. The right atrial size is normal. There is mild aortic valve sclerosis. There is no evidence of aortic regurgitation. Mild mitral annular calcification present. Mild mitral regurgitation is present. Mild tricuspid regurgitation present. There is no evidence of pulmonary hypertension. The right ventricular systolic pressure, as measured by Doppler, is 14.73mmHg. There is no pulmonic regurgitation present. The aortic root size is normal. Echo free space may represent effusion or a pericardial fat pad. CONCLUSIONS -------- 1. The left ventricular size is normal. 2. There is no pulmonic regurgitation present. 3. The aortic root size is normal. 4. Echo free space may represent effusion or a pericardial fat pad. 5. There is mild concentric left ventricular hypertrophy. 6. Overall left ventricular systolic function is normal with, an EF between 55 - 60 %. 7. There is mild aortic valve sclerosis. 8. Mild mitral annular calcification present. 9. Mild mitral regurgitation is present. 10. Mild tricuspid regurgitation present. 11. There is no evidence of pulmonary hypertension. 12. The right ventricular systolic pressure, as measured by Doppler, is 14.73mmHg. MUSIC DEPARTMENT CHAIR: Maia Vallejo RDCS
[2017-03-13] MEDS ORDERED: MULTIVITAMINS, THERA 1 EACH TAB PO SCH (12:00)
--- NOTE | 2017-03-13 13:26 | P.PN ---
Subjective This is an 86-year-old pleasant lady patient of Dr. Caden Ray. She has underlying history of hypothyroidism, neurocognitive degenerative disease of the brain, with significant memory loss, left breast cancer with mastectomy in the past admitted to the hospital secondary to acute episode of syncope. Patient was in advent heading to the bathroom, the next thing the knows was patient was being helped out in the hallway, with cold sweats and was unresponsive. Two-person carrying her at the time, does not recollect any information was passed on by the stool rescue people. No CPR was provided or was needed, and was subsequently sent to emergency room for evaluation. Patient had multiple episodes of syncope in the past, this would be her fifth one in her entire life, her last seizure besides this one was in wintertime in [place], she also had been seeing Dr. Samaniego for her memory loss patient cannot provide any meaningful memory as to the events preceding to the syncope. Patient denies any trauma no chest pain. Patient was evaluated in the past to include an MRI in the brain, and a 48 hour Holter monitor performed December 26, [address] Ray for which there is no pauses noted, minimum heart rate was 41 , 45% of recordings are bradycardia there is no QT prolongation rare PVCs bigeminy and trigeminy noted on the 48 hour Holter monitor. Patient denies any diarrhea no new medication changes no diplopia no motor deficits, including speech. 03/13: The patient was seen and evaluated today. The patient had a head CT did not show any acute abnormality, there is extensive cortical atrophy and cerebral vascular calcifications. 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 Vascular is on consult. So far cardiology workup is negative, patient did not have any cardiac arrhythmia, or bradycardia and myocardial infarction is ruled out, cardiology is on consult. Patient is scheduled for EEG and echo today, pending results. Objective - Vital Signs Vital signs: Vital Signs Temp 97.9 F 03/13/17 04:00 Pulse 88 03/13/17 04:00 Resp 18 03/13/17 04:00 BP 137/67 03/13/17 04:00 Pulse Ox 95 03/13/17 04:00 Intake & Output 03/12/17 03/13/17 03/13/17 18:59 06:59 18:59 Intake Total 330 Output Total 250 Balance 80 Intake: Oral 330 Output: Urine 250 Other: Voiding Method Toilet # Voids 3 0 - Exam - Constitutional General appearance: average body habitus, cooperative, no acute distress - EENT Eyes: anicteric sclerae, EOMI, PERRLA, dentition normal ENT: NA/AT, normal oropharynx - Neck Neck: no lymphadenopathy, normal ROM, no other, no rigidity, no stridor, no thyromegaly - Respiratory Respiratory: bilateral: CTA, negative: diminished, dullness, rales, rhonchi, wheezing - Cardiovascular Rhythm: regular Heart sounds: normal: S1, S2 Abnormal Heart Sounds: no systolic murmur, no diastolic murmur, no rub, no S3 Gallop, no S4 Gallop, no click, no other - Gastrointestinal General gastrointestinal: normal bowel sounds, soft - Integumentary Integumentary: decreased turgor, normal - Neurologic Neurologic: CNII-XII intact - Musculoskeletal Musculoskeletal: gait normal, strength equal bilaterally - Psychiatric Psychiatric: A&O x's 3 (Significant short-term memory loss), appropriate affect , intact judgment & insight - Labs CBC & Chem 7: 03/11/17 19:00 03/12/17 05:54 Labs: Abnormal Lab Results - Last 24 Hours (Table) 03/12/17 03/12/17 Range/Units 05:54 10:05 TSH <0.015 L (0.465-4.680) mIU/L Free T4 2.79 H (0.78-2.19) ng/dL Urine Glucose (UA) 2+ H (Negative) Microbiology - Last 24 Hours (Table) 03/12/17 10:05 Urine Culture - Preliminary Urine,Clean Catch Assessment and Plan Plan: 1. Recurrent syncope. Patient is on consultation by cardiology, she follows with Dr. Ward outpatient for her neurology needs, EEG of the brain requested, CTA of the neck shows a 1.3 cm saccular aneurysm of the ICA near the petrous bone, this would be an incidental finding rather than direct consequence of her syncope, patient would need orthostatic vital signs here outpatient tilt table test, she had a recent 2 day Holter monitor performed December 26, 2016 which showed 41% of documented heart rhythm is in sinus bradycardia, lowest HR 41, no pauses over 2.5 seconds, rare episodes of bigeminy and trigeminy and PVCs. Patient patient is in selective with telemetry monitoring. Patient will be seen by cardiology, most likely would need a loop recorder for a 30 day event monitor, tilt table test. 2. Left breast cancer status post mastectomy the current treatments at this time 3. Hypothyroidism on thyroid supplementation levothyroxine 125 g daily. 4. 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 Bedoya is on consult. CTA failed to reveal any significant and internal carotid stenosis. 5. Neurocognitive degenerative disease of the brain, follows with Dr. Ward for outpatient, patient is receiving B12 shots as often as every week, patient's off anticholinesterase medications however this agents can also potentiate bradycardia and arrhythmias specially with the use of Aricept, unsure whether the patient had been on an NMDA receptor antagonist such as Namenda. 6. 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 GI prophylaxis 8. DVT prophylaxis The above impression and plan of care have been discussed and directed by signing physician. Lakia Sheehan nurse practitioner acting as scribe for signing physician.
== END 2017-03-13 12:32 | disposition home or self-care (01) | DRG 312 ==
LOC: EC 18:32 → 6SEL 23:03
PROVIDERS: ADMIT Family Medicine; ATTEND Family Medicine
DX: I95.1 Orthostatic hypotension (principal); N17.9 Acute kidney failure, unspecified; I67.1 Cerebral aneurysm, nonruptured; F03.90 Unspecified dementia, unspecified severity, without behavioral disturbance, psychotic disturbance, mood disturbance, and anxiety; I45.10 Unspecified right bundle-branch block; E03.9 Hypothyroidism, unspecified; N18.2 Chronic kidney disease, stage 2 (mild); Z90.710 Acquired absence of both cervix and uterus; Z85.3 Personal history of malignant neoplasm of breast; Z80.0 Family history of malignant neoplasm of digestive organs; Z90.12 Acquired absence of left breast and nipple; Z80.3 Family history of malignant neoplasm of breast; Z79.82 Long term (current) use of aspirin; Z79.899 Other long term (current) drug therapy; Z88.6 Allergy status to analgesic agent; Z92.21 Personal history of antineoplastic chemotherapy; Z80.1 Family history of malignant neoplasm of trachea, bronchus and lung
CPT/HCPCS: 36415; 70450; 70498; 71020; 80048; 80053; 81001; 81003; 82550; 82553; 83735; 84439; 84443; 84484; 85025; 87077; 87086; 87186; 93005; 93306; 94760; 96360; 96361; 99285

== ENCOUNTER 2017-03-17 06:23 | Day surgery (SDC) | payer MEDICARE ==
[2017-03-15 14:36] VITALS: BMI 24.7
[2017-03-17] MEDS ORDERED: ceFAZolin 2 GM in SODIUM CHLORIDE 0.9% 100 ML IVPB ONE (06:35)
[2017-03-17] MEDS ORDERED: SODIUM CHLORIDE 0.9% 1,000 ML IV SCH (06:35)
[2017-03-17] MEDS ORDERED: ceFAZolin 1,000 MG in SODIUM CHLORIDE 0.9% IRRIGATIO 250 ML IRRIGATION ONE (06:35)
[2017-03-17 07:16] VITALS: PULSE 70; TEMP 98
[2017-03-17] MEDS ORDERED: IV FLUID CONTINUATION 1,000 ML IV ONE (07:22)
[2017-03-17] MEDS ORDERED: fentaNYL (PF) 50 MCG/ML 2 ML AMP ONE (07:45)
[2017-03-17] MEDS ORDERED: fentaNYL (PF) 50 MCG/ML 2 ML AMP IV ONE (07:46)
[2017-03-17] MEDS ORDERED: ACETAMINOPHEN TAB 325 MG TAB PO PRN (07:59)
--- NOTE | 2017-03-17 08:06 | P.PCN ---
Date of Procedure: 03/17/17 Preoperative Diagnosis: Unexplained syncope Postoperative Diagnosis: The same Procedure(s) Performed: Loop recorder insertion Description of Procedure: This 86-year-old female was recently admitted to the hospital with unexplained syncope. Patient was evaluated by Dr. Hensley who recommended insertion of the loop recorder. Patient was brought to the lab in a fasting state. She was given conscious sedation with 25 g of fentanyl. The skin in the third intercostal space was infiltrated with lidocaine. An incision was drawn made in the skin and loop recorder was inserted in the usual fashion. Patient tolerated the procedure well. Satisfactory thresholds were obtained. The skin was closed with one status which. Programming. Tachycardia detection is programmed to a rate of 1 46 bpm for 16 beats area did Suresh detection is programmed to 30 bpm for 4 beats. Pauses of more than 3 seconds are programmed to be recorded. If dissection is on. The sensitivity is programmed to 0.035 mV. Plan: Patient will be monitored for the next several hours. If stable, she'll be discharged home. She'll continue home medications and also prophylactic antibiotic in the form of Keflex 500 mg 3 times a dayfor 3 days
[2017-03-17 10:54] VITALS: BP 145/68; RESP 20
== END 2017-03-17 10:00 | disposition home or self-care (01) ==
LOC: CATHEP 06:23
PROVIDERS: ATTEND Internal Medicine Cardiovascular Disease
DX: R55 Syncope and collapse (principal)
CPT/HCPCS: 33282; C1764; J0690; J3010

== ENCOUNTER → 2017-05-08 | Outpatient (CLI) | payer MEDICARE ==
--- NOTE | 2017-05-08 13:41 | MM ---
Reason for exam: additional evaluation requested from prior study. Last mammogram was performed 1 year ago. History: Patient is postmenopausal and has history of breast cancer at age 82. Family history of premenopausal breast cancer in sister. Mastectomy of the left breast, May 28, 2012. Malignant US LT VAD breast biopsy of the left breast, May 17, 2012. Benign core biopsy of the left breast, December 03, 1996. Took estrogen for 15 years beginning at age 42. Took progesterone for 15 years beginning at age 42. Physical Findings: Nurse did not find any significant physical abnormalities on exam. MG 3D Diag Mammo W/Cad RT CC and MLO view(s) were taken of the right breast. Prior study comparison: May 05, 2016, right breast MG 3d diag mammo w/cad RT. May 04, 2015, right breast MG 3d diag mammo w/cad RT. There are scattered fibroglandular densities. No suspicious calcifications are seen. Vascular calcifications. There is no discrete abnormality. No significant new findings when compared with previous films. These results were verbally communicated with the patient and result sheet given to the patient on 05/08/17. ASSESSMENT: Benign, BI-RAD 2 RECOMMENDATION: Follow-up diagnostic mammogram of the right breast in 1 year.
== END | disposition home or self-care (01) ==
LOC: RADMAMWWP 12:51
PROVIDERS: ATTEND Internal Medicine
DX: Z08 Encounter for follow-up examination after completed treatment for malignant neoplasm (principal); Z85.3 Personal history of malignant neoplasm of breast
CPT/HCPCS: G0206; G0279

== ENCOUNTER → 2018-05-09 | Outpatient (CLI) | payer MEDICARE ==
--- NOTE | 2018-05-09 12:12 | MM ---
Reason for exam: additional evaluation requested from prior study. Last mammogram was performed 1 year ago. History: Patient is postmenopausal and has history of breast cancer at age 82. Family history of premenopausal breast cancer in sister. Mastectomy of the left breast, May 28, 2012. Malignant US LT VAD breast biopsy of the left breast, May 17, 2012. Benign core biopsy of the left breast, December 03, 1996. Took estrogen for 15 years beginning at age 42. Took progesterone for 15 years beginning at age 42. Physical Findings: Nurse did not find any significant physical abnormalities on exam. MG Diagnostic Mammo RT w CAD CC and MLO view(s) were taken of the right breast. Prior study comparison: May 08, 2017, right breast MG 3d diag mammo w/cad RT. May 05, 2016, right breast MG 3d diag mammo w/cad RT. The breast tissue is heterogeneously dense. This may lower the sensitivity of mammography. Stable benign calcifications. There is no discrete abnormality including area of concern. No significant new findings when compared with previous films. These results were verbally communicated with the patient and result sheet given to the patient on 05/09/18. ASSESSMENT: Benign, BI-RAD 2 RECOMMENDATION: Follow-up diagnostic mammogram of the right breast in 1 year.
== END | disposition home or self-care (01) ==
LOC: RADMAMWWP 10:46
PROVIDERS: ATTEND Internal Medicine
DX: Z08 Encounter for follow-up examination after completed treatment for malignant neoplasm (principal); Z85.3 Personal history of malignant neoplasm of breast
CPT/HCPCS: 77065

== ENCOUNTER → 2019-05-16 | Outpatient (CLI) | payer MEDICARE ==
--- NOTE | 2019-05-16 18:36 | CT ---
EXAMINATION TYPE: CT lumbar spine wo con DATE OF EXAM: 05/16/2019 COMPARISON: None HISTORY: 89-year-old female Lower back pain TECHNIQUE: Contiguous axial scanning of the lumbar spine without IV contrast. Coronal and sagittal re constructions performed. CT DLP: 590.4 mGycm Automated exposure control for dose reduction was used. FINDINGS: Dense atherosclerotic calcifications infrarenal abdominal aorta. Degenerative thinning of the interspinous ligaments with abutment of the spinous processes with scler osis and cystic change. Multilevel ligamentum flavum thickening with advanced hypertrophic facet arthropathy. Overall alignment is maintained. Mild multilevel degenerative disc disease with bulging discs throughout. Disc desiccation and mild di sc height loss at L5-S1 is also present. Changes result in mild narrowing of the spinal canal and L2-L3, L3-L4, L4-L5. On the right, changes resulting mild multilevel neuroforaminal stenoses, more moderate at L4-L5. On the left, changes result in mild multilevel neuroforaminal stenoses, more moderate at L4-L5. IMPRESSION: 1. BAASTRUP'S DISEASE. 2. ADVANCED HYPERTROPHIC FACET ARTHROPATHY THROUGHOUT WITH PRESERVED ALIGNMENT. 3. MILD MULTILEVEL DEGENERATIVE DISC DISEASE WITH BULGING DISCS THROUGHOUT. MORE MODERATE DEGENERATIV E DISC DISEASE AT L5-S1. 4. MILD SPINAL CANAL STENOSES FROM L2 THROUGH L5 LEVELS. 5. VARIABLE MILD NEUROFORAMINAL STENOSES THROUGHOUT, MODERATE ON BOTH SIDES AT L4-L5.
== END | disposition home or self-care (01) ==
LOC: RADCTMAIN 15:44
PROVIDERS: ATTEND Psychiatry & Neurology Neurology
DX: M48.02 Spinal stenosis, cervical region (principal); M51.26 Other intervertebral disc displacement, lumbar region; M51.27 Other intervertebral disc displacement, lumbosacral region; M51.36 Other intervertebral disc degeneration, lumbar region; M51.37 Other intervertebral disc degeneration, lumbosacral region; M46.96 Unspecified inflammatory spondylopathy, lumbar region; M48.26 Kissing spine, lumbar region; Z88.5 Allergy status to narcotic agent; Z88.8 Allergy status to other drugs, medicaments and biological substances; Z88.1 Allergy status to other antibiotic agents
CPT/HCPCS: 72131

== ENCOUNTER → 2019-06-17 | Day surgery (SDC) | payer MEDICARE ==
[2019-06-17 07:28] VITALS: RESP 16; TEMP 97.7
[2019-06-17 09:26] VITALS: BP 117/69; PULSE 63
--- NOTE | 2019-06-17 10:21 | USB ---
EXAMINATION TYPE: US biopsy breast VAD RT, MG diagnostic mammo RT wo CAD DATE OF EXAM: 06/17/2019 CLINICAL HISTORY: R92.8 Abnormal mammogram. TECHNIQUE: Ultrasound guided core biopsy of right breast. COMPARISON: Outside report of whole breast ultrasound dated 05/27/2019. FINDINGS: The procedure of ultrasound guided core biopsy was explained to the patient. Benefits, alternatives, and risks were discussed. An informed consent was then obtained. Preprocedural timeout was performed. The patient was placed in supine positioning for imaging and for the procedure. The overlying skin was prepped and draped in usual sterile fashion. 10 cc of 1% lidocaine was used as anesthetic into the skin and subcutaneous tissue up to the 1 cm mass at the 2:00 position, 2 cm from nipple in the right breast. Under ultrasound guidance, a 12-gauge vacuum assisted biopsy gun device was used to obtain 6 core samples. Following this, a wing-shaped biopsy marker was left in the mass. Postprocedure mammogram demonstrates appropriate biopsy marker placement The patient tolerated the procedure well without any immediate complication. The patient was kept in the radiology department for short stay after the procedure and then discharged home in stable condition. IMPRESSION: Successful, uncomplicated ultrasound guided core biopsy of the 1 cm mass at the 2:00 position, 2 cm from nipple in the right breast, full pathology results to follow. The axilla was scanned real time during the biopsy and no suspicious axillary nodes are seen on the right. 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 See Surgical Pathology Cancer Case Summary. Recommendation Surgical consult of the right breast. CANDELARIO
== END ==
LOC: RADUSWWP 07:04
PROVIDERS: ATTEND Surgery
DX: C50.911 Malignant neoplasm of unspecified site of right female breast (principal); Z17.0 Estrogen receptor positive status [ER+]
CPT/HCPCS: 88305; 88342; 88341; 77065; 19083; A4648; J2001

== ENCOUNTER 2019-07-12 09:33 | Day surgery (SDC) | payer MEDICARE ==
[2019-07-10 10:13] VITALS: BMI 24.7
[~2019-07-12 09:33] MED LIST: DEXAMETHASONE SOD PHOSPHATE 10 MG/ML 1 ML VIAL IV ONE; HEPARIN SODIUM,PORCINE 5,000 UNIT/ML 1 ML VIAL SQ ONE; HYDROmorphone 0.5 MG/0.5 ML SYRINGE IVP PRN; MIDAZOLAM 2 MG/2 ML VIAL IV PRN; ONDANSETRON 4 MG/2 ML VIAL IVP ONE
[2019-07-12] MEDS: LACTATED RINGERS 1,000 ML IV SCH (10:00)
--- NOTE | 2019-07-12 10:14 | P.GSHP ---
History of Present Illness H&P Date: 07/12/19 Chief Complaint: Right breast cancer This is a 81-year-old female who was recently diagnosed left breast cancer. Patient presents today for right breast mastectomy with sentinel node biopsy. Past Medical History Past Medical History: Cancer, Memory Impairment, Osteoarthritis (OA), Thyroid Disorder Additional Past Medical History / Comment(s): breast cancer, chronic back pain and neck pain, dizzy spells History of Any Multi-Drug Resistant Organisms: None Reported Past Surgical History: Bladder Surgery, Breast Surgery, Hysterectomy Additional Past Surgical History / Comment(s): left mastectomy, eloy cataracts Past Anesthesia/Blood Transfusion Reactions: Motion Sickness Additional Past Anesthesia/Blood Transfusion Reaction / Comment(s): gets dizzy if she lays down flat Smoking Status: Never smoker - Past Family History Father Family Medical History: Cancer Additional Family Medical History / Comment(s): Lung Mother Family Medical History: Cancer Additional Family Medical History / Comment(s): Colon metastasize to liver Sister(s) Family Medical History: Cancer Additional Family Medical History / Comment(s): Breast Medications and Allergies Home Medications Medication Instructions Recorded Confirmed Type Aspirin EC [Ecotrin Low Dose] 81 mg PO DAILY 03/11/17 07/10/19 History Cyanocobalamin [Vitamin B-12] 500 mcg PO HS 03/11/17 07/10/19 History Levothyroxine Sodium [Synthroid] 125 mcg PO DAILY 03/11/17 07/10/19 History Multivitamins, Thera [Multivitamin 1 tab PO DAILY 03/11/17 07/10/19 History (formulary)] Fish Oil(Dose Unknown) 1 tab PO BID 03/15/17 07/10/19 History Flaxseed Oil(Dose Unknown) 1 tab PO BID 03/15/17 07/10/19 History Glucosam/Brando-Msm1/C/Lars/Bosw 1 each PO DAILY 03/15/17 07/10/19 History [Glucosamine-Chondroitin Tablet] Red Yeast Rice(Dose Unknown) 1 tab PO BID 03/15/17 07/12/19 History Memantine [Namenda] 10 mg PO BID 07/10/19 07/10/19 History Allergies Allergy/AdvReac Type Severity Reaction Status Date / Time meperidine [From Demerol] Allergy Rash/Hives Verified 07/12/19 09:58 Surgical - Exam Vital Signs Temp Pulse Resp BP Pulse Ox 97.8 F 65 17 150/78 95 07/12/19 09:58 07/12/19 09:58 07/12/19 09:58 07/12/19 09:58 07/12/19 09:58 - General well developed, well nourished, no distress - Eyes PERRL - ENT normal pinna - Neck no masses - Respiratory normal expansion - Cardiovascular Rhythm: regular - Abdomen Abdomen: soft, non tender - Integumentary Healing core biopsy incision on the right breast Assessment and Plan Assessment: Right breast cancer We'll perform right simple mastectomy with sentinel node biopsy.
--- NOTE | 2019-07-12 10:48 | P.GSHP ---
History of Present Illness H&P Date: 07/12/19 Chief Complaint: Right breast cancer This 89-year-old female who presents today for right breast simple mastectomy and sentinel biopsied. The patient will also undergo right sentinel node injection. Patient was recently diagnosed left breast cancer. Past Medical History Past Medical History: Cancer, Memory Impairment, Osteoarthritis (OA), Thyroid Disorder Additional Past Medical History / Comment(s): breast cancer, chronic back pain and neck pain, dizzy spells History of Any Multi-Drug Resistant Organisms: None Reported Past Surgical History: Bladder Surgery, Breast Surgery, Hysterectomy Additional Past Surgical History / Comment(s): left mastectomy, eloy cataracts Past Anesthesia/Blood Transfusion Reactions: Motion Sickness Additional Past Anesthesia/Blood Transfusion Reaction / Comment(s): gets dizzy if she lays down flat Smoking Status: Never smoker - Past Family History Father Family Medical History: Cancer Additional Family Medical History / Comment(s): Lung Mother Family Medical History: Cancer Additional Family Medical History / Comment(s): Colon metastasize to liver Sister(s) Family Medical History: Cancer Additional Family Medical History / Comment(s): Breast Medications and Allergies Home Medications Medication Instructions Recorded Confirmed Type Aspirin EC [Ecotrin Low Dose] 81 mg PO DAILY 03/11/17 07/10/19 History Cyanocobalamin [Vitamin B-12] 500 mcg PO HS 03/11/17 07/10/19 History Levothyroxine Sodium [Synthroid] 125 mcg PO DAILY 03/11/17 07/10/19 History Multivitamins, Thera [Multivitamin 1 tab PO DAILY 03/11/17 07/10/19 History (formulary)] Fish Oil(Dose Unknown) 1 tab PO BID 03/15/17 07/10/19 History Flaxseed Oil(Dose Unknown) 1 tab PO BID 03/15/17 07/10/19 History Glucosam/Brando-Msm1/C/Lars/Bosw 1 each PO DAILY 03/15/17 07/10/19 History [Glucosamine-Chondroitin Tablet] Red Yeast Rice(Dose Unknown) 1 tab PO BID 03/15/17 07/12/19 History Memantine [Namenda] 10 mg PO BID 07/10/19 07/10/19 History Allergies Allergy/AdvReac Type Severity Reaction Status Date / Time meperidine [From Demerol] Allergy Rash/Hives Verified 07/12/19 09:58 Surgical - Exam Vital Signs Temp Pulse Resp BP Pulse Ox 97.8 F 65 17 150/78 95 07/12/19 09:58 07/12/19 09:58 07/12/19 09:58 07/12/19 09:58 07/12/19 09:58 - General well developed, well nourished, no distress - Eyes PERRL - ENT normal pinna - Neck no masses - Respiratory normal expansion - Cardiovascular Rhythm: regular - Abdomen Abdomen: soft, non tender - Integumentary Well-healed right breast core biopsy site Assessment and Plan Assessment: Right breast cancer Patient will undergo sentinel node injection. Patient will undergo right breast simple mastectomy with sentinel node biopsy
--- NOTE | 2019-07-12 11:38 | NM ---
EXAMINATION TYPE: NM sentinel node injection DATE OF EXAM: 07/12/2019 COMPARISON: Mammogram June 17, 2019. HISTORY: Newly diagnosed right-sided breast cancer on biopsy June 17. TECHNIQUE AND FINDINGS: The procedure of sentinel lymph node injection was explained to the patient. The benefits, alternatives, and risks were discussed. An informed consent was then obtained. Overlying skin is cleaned with sterile alcohol. Following this, 542 uCi [id number] Tilmanocept was inject ed in the upper outer aspect of the right nipple intradermally. The patient tolerated the procedure well without any immediate complication. The patient was kept in the radiology department for short stay after the procedure and then taken to surgery for surgical p rocedure what is presumed intraoperative gamma probe will be used for sentinel lymph node detection. IMPRESSION: Right breast radiotracer injection for sentinel node localization as above.
[2019-07-12] MEDS ORDERED: LIDOCAINE 1% INJ 10MG/ML (20 ML MDV) ONE (12:01)
[2019-07-12] MEDS ORDERED: fentaNYL (PF) 50 MCG/ML 2 ML AMP ONE (12:01)
[2019-07-12] MEDS ORDERED: PROPOFOL 10 MG/ML 20 ML VIAL IV ONE (12:01)
[2019-07-12] MEDS ORDERED: MIDAZOLAM 2 MG/2 ML VIAL ONE (12:01)
[2019-07-12] MEDS ORDERED: METHYLENE BLUE 10 MG/ML (10 ML VIAL) MISCELLANE ONE (12:29)
[2019-07-12] MEDS ORDERED: BUPIVACAINE (PF) 0.25% 30 ML VIAL SQ ONE ×2 (12:42→13:26)
[2019-07-12] MEDS ORDERED: NALOXONE 0.4 MG/ML 1 ML VIAL IV PRN (13:33)
[2019-07-12] MEDS ORDERED: LACTATED RINGERS 1,000 ML IV ONE (13:33)
[2019-07-12] MEDS ORDERED: HYDROmorphone 0.5 MG/0.5 ML SYRINGE IVP PRN (13:33)
[2019-07-12] MEDS ORDERED: ONDANSETRON 4 MG/2 ML VIAL IVP PRN (13:33)
[2019-07-12] MEDS: HYDROcodone/APAP 5-325MG 1 EACH TAB PO PRN (18:30)
--- NOTE | 2019-07-12 18:30 | P.CONS ---
History of Present Illness - Reason for Consult Consult date: 07/12/19 Medical management - Chief Complaint Right breast mastectomy/right breast cancer - History of Present Illness 81-year-old female patient with history of hypothyroidism, osteoarthritis and memory impairment who was recently diagnosed with right breast cancer, admitted to the hospital for elective right mastectomy with sentinel lymph node biopsy; patient is POD #0; internal medicine is consulted for medical management Review of Systems REVIEW OF SYSTEMS: CONSTITUTIONAL: No fever, no malaise, no fatigue. HEENT: No recent visual problems or hearing problems. Denied any sore throat. CARDIOVASCULAR: No chest pain, orthopnea, PND, no palpitations, no syncope. PULMONARY: No shortness of breath, no cough, no hemoptysis. GASTROINTESTINAL: No diarrhea, no nausea, no vomiting, no abdominal pain. NEUROLOGICAL: No headaches, no weakness, no numbness. HEMATOLOGICAL: Denies any bleeding or petechiae. GENITOURINARY: Denies any burning micturition, frequency, or urgency. MUSCULOSKELETAL/RHEUMATOLOGICAL: Denies any joint pain, swelling, or any muscle pain. ENDOCRINE: Denies any polyuria or polydipsia. The rest of the 14-point review of systems is negative. Past Medical History Past Medical History: Cancer, Memory Impairment, Osteoarthritis (OA), Thyroid Disorder Additional Past Medical History / Comment(s): breast cancer, chronic back pain and neck pain, dizzy spells History of Any Multi-Drug Resistant Organisms: None Reported Past Surgical History: Bladder Surgery, Breast Surgery, Hysterectomy Additional Past Surgical History / Comment(s): left mastectomy, [place] cataracts Past Anesthesia/Blood Transfusion Reactions: Motion Sickness Additional Past Anesthesia/Blood Transfusion Reaction / Comm: gets dizzy if she lays down flat Past Psychological History: No Psychological Hx Reported Additional Psychological History / Comment(s): memory loss, alzheimers Smoking Status: Never smoker Past Alcohol Use History: None Reported Past Drug Use History: None Reported - Past Family History Father Family Medical History: Cancer Additional Family Medical History / Comment(s): Lung Mother Family Medical History: Cancer Additional Family Medical History / Comment(s): Colon metastasize to liver Sister(s) Family Medical History: Cancer Additional Family Medical History / Comment(s): Breast Medications and Allergies Home Medications Medication Instructions Recorded Confirmed Type Aspirin EC [Ecotrin Low Dose] 81 mg PO DAILY 03/11/17 07/10/19 History Cyanocobalamin [Vitamin B-12] 500 mcg PO HS 03/11/17 07/10/19 History Levothyroxine Sodium [Synthroid] 125 mcg PO DAILY 03/11/17 07/10/19 History Multivitamins, Thera [Multivitamin 1 tab PO DAILY 03/11/17 07/10/19 History (formulary)] Fish Oil(Dose Unknown) 1 tab PO BID 03/15/17 07/10/19 History Flaxseed Oil(Dose Unknown) 1 tab PO BID 03/15/17 07/10/19 History Glucosam/Brando-Msm1/C/Lars/Bosw 1 each PO DAILY 03/15/17 07/10/19 History [Glucosamine-Chondroitin Tablet] Red Yeast Rice(Dose Unknown) 1 tab PO BID 03/15/17 07/12/19 History Memantine [Namenda] 10 mg PO BID 07/10/19 07/10/19 History Docusate [Colace] 100 mg PO BID #20 capsule 07/12/19 Rx HYDROcodone/APAP 5-325MG [[place] 1 tab PO Q6HR PRN #10 tab 07/12/19 Rx 5-325] Allergies Allergy/AdvReac Type Severity Reaction Status Date / Time meperidine [From Demerol] Allergy Rash/Hives Verified 07/12/19 09:58 Physical Exam Vitals: Vital Signs Temp Pulse Pulse Resp BP Pulse Ox 07/12/19 16:15 59 L 127/66 07/12/19 16:04 61 16 07/12/19 16:00 58 L 131/73 07/12/19 15:45 57 L 131/75 07/12/19 15:30 98 F 63 12 144/81 96 07/12/19 14:47 61 16 140/66 95 07/12/19 14:32 64 18 144/69 96 07/12/19 14:17 64 18 139/66 97 07/12/19 14:02 68 14 160/75 98 07/12/19 13:47 63 18 124/56 97 07/12/19 13:36 97 F L 65 16 123/59 96 07/12/19 09:58 97.8 F 65 17 150/78 95 Intake and Output 07/12/19 07/12/19 07/12/19 06:59 14:59 22:59 Intake Total 950 Output Total 30 Balance 920 Intake: IV 950 Output: Estimated Blood Loss 30 Other: Weight 61.235 kg PHYSICAL EXAMINATION: GENERAL: The patient is alert and oriented x3, not in any acute distress. Well developed, well nourished. HEENT: Pupils are round and equally reacting to light. EOMI. No scleral icterus. No conjunctival pallor. Normocephalic, atraumatic. No pharyngeal erythema. No thyromegaly. CARDIOVASCULAR: S1 and S2 present. No murmurs, rubs, or gallops. PULMONARY: Chest is clear to auscultation, no wheezing or crackles. ABDOMEN: Soft, nontender, nondistended, normoactive bowel sounds. No palpable organomegaly. MUSCULOSKELETAL: No joint swelling or deformity. EXTREMITIES: No cyanosis, clubbing, or pedal edema. NEUROLOGICAL: Gross neurological examination did not reveal any focal deficits. SKIN: No rashes. Assessment and Plan Assessment: 1. Recent diagnosis of right breast cancer; status post simple right mastectomy with [place] lymph node biopsy; POD #0 - We will recommend incentive spirometry; early ambulation; pain control per your discretion 2. Hypothyroidism; continue with home thyroid replacement therapy 3. Osteoarthritis; continue with current pain control 4. DVT prophylaxis; subcu Lovenox CODE STATUS; full code Time with Patient: Greater than 30
[2019-07-13] MEDS: HYDROcodone/APAP 5-325MG 1 EACH TAB PO PRN (04:12)
[2019-07-13] MEDS: LACTATED RINGERS 1,000 ML IV SCH (05:30)
[2019-07-13] MEDS: ENOXAPARIN 40 MG/0.4 ML SYRINGE SQ SCH (08:53)
--- NOTE | 2019-07-13 10:06 | P.PN ---
Subjective Progress Note Date: 07/13/19 Principal diagnosis: Right breast cancer Patient says her pain is mild to moderate. Sitting up in a chair currently. No nausea or vomiting. Objective - Vital Signs Vital signs: Vital Signs Temp 98.6 F 07/13/19 07:00 Pulse 77 07/13/19 07:00 Resp 18 07/13/19 07:00 BP 96/57 07/13/19 07:00 Pulse Ox 95 07/13/19 07:00 Intake & Output 07/12/19 07/13/19 07/13/19 18:59 06:59 18:59 Intake Total 950 590 Output Total 30 70 35 Balance 920 520 -35 Weight 61.235 kg Intake: IV 950 Oral 590 Output: Drainage 70 35 Right Breast 70 35 Estimated Blood Loss 30 Other: Voiding Method Toilet # Voids 2 - Exam Right chest incision without ischemia, ecchymosis noted, small hematoma appreciated, SIMÓN sanguinous Assessment and Plan (1) Malignant neoplasm of right breast Narrative/Plan: Patient with a small hematoma postoperative. No need for surgical drainage at this time. Continue stripping drains. Check CBC today and tomorrow. Reevaluate tomorrow. Current Visit: Yes Status: Acute Code(s): C50.911 - MALIGNANT NEOPLASM OF UNSP SITE OF RIGHT FEMALE BREAST SNOMED Code(s): 913554756
[2019-07-13 11:15] LABS: Basophils # (A) 0.1 k/uL (0-0.2); Basophils % (A) 1 %; Eosinophils # (A) 0.2 k/uL (0-0.7); Eosinophils % (A) 2 %; HCT 36.6 % (34.0-46.0); HGB 12.2 gm/dL (11.4-16.0); Lymphocytes # (A) 2.4 k/uL (1.0-4.8); Lymphocytes % (A) 33 %; MCH 29.9 pg (25.0-35.0); MCHC 33.2 g/dL (31.0-37.0); MCV 89.9 fL (80.0-100.0); Mean Platelet Volume 8.2; Monocytes # (A) 0.4 k/uL (0-1.0); Monocytes % (A) 5 %; Neutrophils # (A) 4.1 k/uL (1.3-7.7); Neutrophils % (A) 57 %; Platelet Count 203 k/uL (150-450); RBC 4.08 m/uL (3.80-5.40); RDW 12.8 % (11.5-15.5); WBC 7.2 k/uL (3.8-10.6)
[2019-07-13 15:11] VITALS: RESP 16
[2019-07-13] MEDS: SODIUM CHLORIDE 0.9% 1,000 ML IV SCH (16:19)
--- NOTE | 2019-07-13 16:46 | P.PN ---
Subjective Progress Note Date: 07/13/19 Principal diagnosis: Right breast cancer Status post mastectomy 07/13/2019 Patient is seen and evaluated in room at bedside; nursing staff reporting a near syncopal episode; small hematoma surgical site Vital signs are reviewed and blood pressure is soft at 96/57; we will order orthostatic vital signs, stat EKG, troponin every 43, orthostatic vital signs every shift and 2-D echo; start patient on IV fluids normal saline at rate of 100 mL an hour; consult cardiology for further recommendations Objective - Vital Signs Vital signs: Vital Signs Temp 98.6 F 07/13/19 07:00 Pulse 77 07/13/19 07:00 Resp 18 07/13/19 07:00 BP 96/57 07/13/19 07:00 Pulse Ox 95 07/13/19 07:00 Intake & Output 07/12/19 07/13/19 07/13/19 18:59 06:59 18:59 Intake Total 950 590 Output Total 30 70 80 Balance 920 520 -80 Weight 61.235 kg Intake: IV 950 Oral 590 Output: Drainage 70 80 Right Breast 70 80 Estimated Blood Loss 30 Other: Voiding Method Toilet # Voids 2 - Exam PHYSICAL EXAMINATION: GENERAL: The patient is alert and oriented x3, not in any acute distress. Well developed, well nourished. HEENT: Pupils are round and equally reacting to light. EOMI. No scleral icterus. No conjunctival pallor. Normocephalic, atraumatic. No pharyngeal erythema. No thyromegaly. CARDIOVASCULAR: S1 and S2 present. No murmurs, rubs, or gallops. PULMONARY: Chest is clear to auscultation, no wheezing or crackles. ABDOMEN: Soft, nontender, nondistended, normoactive bowel sounds. No palpable organomegaly. MUSCULOSKELETAL: No joint swelling or deformity. EXTREMITIES: No cyanosis, clubbing, or pedal edema. NEUROLOGICAL: Gross neurological examination did not reveal any focal deficits. SKIN: No rashes. - Labs CBC & Chem 7: 07/13/19 10:17 Assessment and Plan Assessment: 1. Recent diagnosis of right breast cancer; status post simple right mastectomy with [place] lymph node biopsy; POD #0 - We will recommend incentive spirometry; early ambulation; pain control per your discretion 2. Hypothyroidism; continue with home thyroid replacement therapy 3. Osteoarthritis; continue with current pain control 4. DVT prophylaxis; subcu Lovenox CODE STATUS; full code
--- NOTE | 2019-07-13 16:56 | ECHOF ---
Referral Reason:syncope MEASUREMENTS -------- HEIGHT: 162.6 cm WEIGHT: 61.2 kg BP: 96/57 RVIDd: 2.7 cm (< 3.3) IVSd: 1.2 cm (0.6 - 1.1) LVIDd: 3.7 cm (3.9 - 5.3) LVPWd: 1.0 cm (0.6 - 1.1) IVSs: 1.6 cm LVIDs: 2.6 cm LVPWs: 1.5 cm LA Diam: 3.0 cm (2.7 - 3.8) LAESV Index (A-L): 16.41 ml/m Ao Diam: 3.2 cm (2.0 - 3.7) AV Cusp: 1.6 cm (1.5 - 2.6) MV EXCURSION: 14.946 mm (> 18.000) MV EF SLOPE: 76 mm/s (70 - 150) EPSS: 0.5 cm MV E Teofilo: 0.92 m/s MV DecT: 231 ms MV A Teofilo: 1.12 m/s MV E/A Ratio: 0.82 RAP: 5.00 mmHg RVSP: 28.34 mmHg FINDINGS -------- Sinus rhythm. This was a technically adequate study. The left ventricular size is normal. There is borderline concentric left ventricular hypertrophy. Overall left ventricular systolic function is normal with, an EF between 60 - 65 %. The right ventricle is normal in size. Normal LA size by volume 22+/-6 ml/m2. The right atrium is normal in size. Interatrial and interventricular septum intact. There is mild aortic valve sclerosis. The mitral valve leaflets are mildly thickened. Mild mitral annular calcification present. Mild tricuspid regurgitation present. Right ventricular systolic pressure is normal at < 35 mmHg. Trace/mild (physiologic) pulmonic regurgitation. The aortic root size is normal. Normal inferior vena cava with normal inspiratory collapse consistent with estimated right atrial pre ssure of 5 mmHg. Echo free space may represent effusion or a pericardial fat pad. CONCLUSIONS -------- 1. Sinus rhythm. 2. This was a technically adequate study. 3. The left ventricular size is normal. 4. There is borderline concentric left ventricular hypertrophy. 5. Overall left ventricular systolic function is normal with, an EF between 60 - 65 %. 6. The right ventricle is normal in size. 7. Normal LA size by volume 22+/-6 ml/m2. 8. The right atrium is normal in size. 9. Interatrial and interventricular septum intact. 10. There is mild aortic valve sclerosis. 11. The mitral valve leaflets are mildly thickened. 12. Mild mitral annular calcification present. 13. Mild tricuspid regurgitation present. 14. Right ventricular systolic pressure is normal at < 35 mmHg. 15. Trace/mild (physiologic) pulmonic regurgitation. 16. The aortic root size is normal. 17. Normal inferior vena cava with normal inspiratory collapse consistent with estimated right atrial pressure of 5 mmHg. 18. Echo free space may represent effusion or a pericardial fat pad. CARE COORDINATION MANAGER: Frances Gunn RDCS
[2019-07-14] MEDS: HYDROcodone/APAP 5-325MG 1 EACH TAB PO PRN
[2019-07-14] MEDS: SODIUM CHLORIDE 0.9% 1,000 ML IV SCH ×2 (00:01→13:41)
[2019-07-14 06:44] LABS: Basophils # (A) 0.1 k/uL (0-0.2); Basophils % (A) 1 %; Eosinophils # (A) 0.3 k/uL (0-0.7); Eosinophils % (A) 6 %; HCT 28.7 % (34.0-46.0); Lymphocytes # (A) 2.4 k/uL (1.0-4.8); Lymphocytes % (A) 45 %; MCH 29.4 pg (25.0-35.0); MCHC 32.9 g/dL (31.0-37.0); MCV 89.4 fL (80.0-100.0); Mean Platelet Volume 7.7; Monocytes # (A) 0.4 k/uL (0-1.0); Monocytes % (A) 7 %; Neutrophils # (A) 2.1 k/uL (1.3-7.7); Neutrophils % (A) 39 %; Platelet Count 154 k/uL (150-450); RBC 3.21 m/uL (3.80-5.40); WBC 5.3 k/uL (3.8-10.6)
[2019-07-14 06:59] LABS: HGB 9.4 gm/dL (11.4-16.0)
[2019-07-14] MEDS: LACTATED RINGERS 1,000 ML IV SCH (09:02)
[2019-07-14] MEDS: ENOXAPARIN 40 MG/0.4 ML SYRINGE SQ SCH (09:02)
[2019-07-14 09:07] VITALS: BP 118/71; PULSE 74; TEMP 98
--- NOTE | 2019-07-14 10:18 | P.PN ---
Subjective Progress Note Date: 07/14/19 Principal diagnosis: Right breast cancer Patient doing well this morning. Only mild discomfort. SIMÓN drain is now serosanguineous. Hemoglobin did drop to 9.4. She had an episode yesterday of near syncope. She apparently has had these episodes recently. Workup by medicine thus far negative. She would like to go home today. She is afebrile with stable vitals. Objective - Vital Signs Vital signs: Vital Signs Temp 98.0 F 07/14/19 07:00 Pulse 74 07/14/19 07:00 Resp 16 07/14/19 07:00 BP 118/71 07/14/19 07:00 Pulse Ox 92 L 07/14/19 07:00 Intake & Output 07/13/19 07/14/19 07/14/19 18:59 06:59 18:59 Intake Total 100 590 Output Total 110 65 Balance -10 525 Intake: Intake, IV Titration 100 Amount Sodium Chloride 0.9% 1, 100 000 ml @ 100 mls/hr IV . Q10H PATRICA Rx#:[id number] Oral 590 Output: Drainage 110 65 Right Breast 110 65 Other: # Voids 2 2 - Exam Right chest wall incision clean and dry, ecchymosis noted, small hematoma actually improved from yesterday - Labs CBC & Chem 7: 07/14/19 06:12 Labs: Abnormal Lab Results - Last 24 Hours (Table) 07/14/19 Range/Units 06:12 RBC 3.21 L (3.80-5.40) m/uL Hgb 9.4 L D (11.4-16.0) gm/dL Hct 28.7 L (34.0-46.0) % Assessment and Plan (1) Malignant neoplasm of right breast Narrative/Plan: Patient doing fairly well at this time. She would like to be discharged. We'll discuss with the hospitalist service. Plan discharge if they are agreeable. Current Visit: Yes Status: Acute Code(s): C50.911 - MALIGNANT NEOPLASM OF UNSP SITE OF RIGHT FEMALE BREAST SNOMED Code(s): 953912172
--- NOTE | 2019-07-14 12:30 | P.CRDCN ---
History of Present Illness History of present illness: HISTORY OF PRESENTING ILLNESS This is a pleasant 89-year-old female past medical history significant for breast cancer status post left mastectomy and recent right mastectomy, freq uent episodes of syncope loop recorder in place and dementia. She follows in the office with Dr. Hensley. We have been asked to see in consultation for near- syncope. She underwent right mastectomy with Dr. Pepper on July 12. Yesterday afternoon to her and her son were walking in [place] and she said she felt the discomfort in her head and necks thing she fell. Her son was able to catch her. There was no positive loss of consciousness. She denied having chest pain, dizziness or shortness of breath prior to falling. She was not on the monitor at that time. risk developer was placed shortly thereafter and has been unremarkable. There is frequent artifact secondary to recent mas tectomy and lead placement. Blood pressure and EKG obtained at this time are unremarkable. Echocardiogram ordered revealed preserved LV systolic function with ejection fraction 60-65%. Laboratory data reviewed, WBC 5.3, hemoglobin 9.4 down from 12.2 and troponin negative 1. She takes no daily cardiac medications. REVIEW OF SYSTEMS At the time of my exam: CONSTITUTIONAL: Denies fever or chills. CARDIOVASCULAR: Denies chest pain, shortness of breath, orthopnea, PND or palpitations. RESPIRATORY: Denies cough. GASTROINTESTINAL: Denies abdominal pain, diarrhea, constipation, nausea or vomiting. MUSCULOSKELETAL: Denies myalgias. NEUROLOGIC: Denies numbness, tingling or weakness. ENDOCRINE: Denies fatigue, weight change, polydipsia or polyurina. GENITOURINARY: Denies burning, hematuria or urgency with micturation. HEMATOLOGIC: Denies history of anemia or bleeding. PHYSICAL EXAMINATION Blood pressure 118/71 heart rate 84 afebrile and maintaining oxygen saturation on nasal cannula. CONSTITUTIONAL: No apparent distress. HEENT: Head is normocephalic. Pupils are equal, round. Sclerae anicteric. Mucous membranes of the mouth are moist. No JVD. No carotid bruit. CHEST EXAMINATION: Lungs are clear to auscultation. No chest wall tenderness is noted on palpation or with deep breathing. HEART EXAMINATION: Regular rate and rhythm. S1, S2 heard. No murmurs, gallops or rub. ABDOMEN: Soft, nontender. Positive bowel sounds. EXTREMITIES: 2+ peripheral pulses, no lower extremity edema and no calf tenderness. NEUROLOGIC EXAMINATION: Patient is awake, alert and oriented to self. ASSESSMENT Near syncope Right mastectomy postoperative day #[address] secondary to frequent syncopal episodes Anemia PLAN Check for orthostatic changes. Loop recorder interrogation unremarkable. Stable for discharge from a cardiac perspective. No cardiac etiology for near syncope. Follow up with Dr. Hensley upon discharge. Nurse Practitioner note has been reviewed, I agree with a documented findings and plan of care. Patient was seen and examined. Past Medical History Past Medical History: Cancer, Memory Impairment, Osteoarthritis (OA), Thyroid Disorder Additional Past Medical History / Comment(s): breast cancer, chronic back pain and neck pain, dizzy spells History of Any Multi-Drug Resistant Organisms: None Reported Past Surgical History: Bladder Surgery, Breast Surgery, Hysterectomy Additional Past Surgical History / Comment(s): left mastectomy, [place] cataracts Past Anesthesia/Blood Transfusion Reactions: Motion Sickness Additional Past Anesthesia/Blood Transfusion Reaction / Comment(s): gets dizzy if she lays down flat Past Psychological History: No Psychological Hx Reported Additional Psychological History / Comment(s): memory loss, alzheimers Smoking Status: Never smoker Past Alcohol Use History: None Reported Past Drug Use History: None Reported - Past Family History Father Family Medical History: Cancer Additional Family Medical History / Comment(s): Lung Mother Family Medical History: Cancer Additional Family Medical History / Comment(s): Colon metastasize to liver Sister(s) Family Medical History: Cancer Additional Family Medical History / Comment(s): Breast Medications and Allergies Home Medications Medication Instructions Recorded Confirmed Type Aspirin EC [Ecotrin Low Dose] 81 mg PO DAILY 03/11/17 07/10/19 History Cyanocobalamin [Vitamin B-12] 500 mcg PO HS 03/11/17 07/10/19 History Levothyroxine Sodium [Synthroid] 125 mcg PO DAILY 03/11/17 07/10/19 History Multivitamins, Thera [Multivitamin 1 tab PO DAILY 03/11/17 07/10/19 History (formulary)] Fish Oil(Dose Unknown) 1 tab PO BID 03/15/17 07/10/19 History Flaxseed Oil(Dose Unknown) 1 tab PO BID 03/15/17 07/10/19 History Glucosam/Brando-Msm1/C/Lars/Bosw 1 each PO DAILY 03/15/17 07/10/19 History [Glucosamine-Chondroitin Tablet] Red Yeast Rice(Dose Unknown) 1 tab PO BID 03/15/17 07/12/19 History Memantine [Namenda] 10 mg PO BID 07/10/19 07/10/19 History Docusate [Colace] 100 mg PO BID #20 capsule 07/12/19 Rx HYDROcodone/APAP 5-325MG [[place] 1 tab PO Q6HR PRN #10 tab 07/12/19 Rx 5-325] Allergies Allergy/AdvReac Type Severity Reaction Status Date / Time meperidine [From Demerol] Allergy Rash/Hives Verified 07/12/19 09:58 Physical Exam Vitals: Vital Signs Temp Pulse Pulse Resp BP Pulse Ox 07/14/19 07:00 98.0 F 74 16 118/71 92 L 07/14/19 03:09 98.2 F 78 16 116/63 94 L 07/13/19 20:21 97.3 F L 84 16 121/58 90 L 07/13/19 18:50 115/60 07/13/19 18:48 100/58 07/13/19 15:00 98.0 F 71 16 124/72 94 L 07/13/19 13:05 72 119/68 07/13/19 13:00 97.8 F 71 112/64 98 Intake and Output 07/13/19 07/14/19 07/14/19 22:59 06:59 14:59 Intake Total 590 Output Total 65 Balance 590 -65 Intake: Oral 590 Output: Drainage 65 Right Breast 65 Other: # Voids 2 Results 07/14/19 06:12 Cardiac Enzymes 07/13/19 Range/Units 14:14 Troponin I <0.012 (0.000-0.034) ng/mL CBC 07/13/19 07/14/19 Range/Units 10:17 06:12 WBC 7.2 5.3 (3.8-10.6) k/uL RBC 4.08 3.21 L (3.80-5.40) m/uL Hgb 12.2 9.4 L D (11.4-16.0) gm/dL Hct 36.6 28.7 L (34.0-46.0) % Plt Count 203 154 (150-450) k/uL Current Medications Generic Name Dose Route Start Last Admin Trade Name Freq PRN Reason Stop Dose Admin Hydrocodone Bitart/Acetaminophen 1 each 07/12/19 13:33 07/14/19 00:00 [place] 5-325 PO 1 each Q4HR PRN Administration Mild Pain Enoxaparin Sodium 40 mg 07/13/19 09:00 07/14/19 09:02 Lovenox SQ 40 mg DAILY PATRICA Administration Hydromorphone HCl 0.5 mg 07/12/19 13:33 Dilaudid IVP Q3HR PRN Moderate to Severe Pain Lactated Ringer's 1,000 mls @ 20 mls/hr 07/12/19 05:59 07/14/19 09:02 Lactated Ringers IV Not Given .Q24H PATRICA Sodium Chloride 1,000 mls @ 100 mls/hr 07/13/19 13:30 07/14/19 00:01 Saline 0.9% IV 100 mls/hr .Q10H PATRICA Administration Naloxone HCl 0.2 mg 07/12/19 13:33 Narcan IV Q2M PRN Opioid Reversal Ondansetron HCl 4 mg 07/12/19 13:33 Zofran IVP Q8HR PRN Nausea And Vomiting Intake and Output 07/13/19 07/14/19 07/14/19 22:59 06:59 14:59 Intake Total 590 Output Total 65 Balance 590 -65 Intake: Oral 590 Output: Drainage 65 Right Breast 65 Other: # Voids 2 07/14/19 06:12
--- NOTE | 2019-07-14 16:19 | P.PN ---
Subjective Progress Note Date: 07/14/19 Principal diagnosis: Right breast cancer Status post mastectomy 07/13/2019 Patient is seen and evaluated in room at bedside; nursing staff reporting a near syncopal episode; small hematoma surgical site Vital signs are reviewed and blood pressure is soft at 96/57; we will order orthostatic vital signs, stat EKG, troponin every 43, orthostatic vital signs every shift and 2-D echo; start patient on IV fluids normal saline at rate of 100 mL an hour; consult cardiology for further recommendations 07/14/2019 Patient is seen and evaluated in room at bedside; no further episodes of syncope; workup has been unremarkable; blood pressure is improved on IV fluid hydration; 2-D echo is reviewed and is stable; patient was evaluated by cardiology and no further inpatient workup was recommended; patient can be discharged on surgery discretion Objective - Vital Signs Vital signs: Vital Signs Temp 98.0 F 07/14/19 07:00 Pulse 74 07/14/19 07:00 Resp 16 07/14/19 07:00 BP 118/71 07/14/19 07:00 Pulse Ox 92 L 07/14/19 07:00 Intake & Output 07/13/19 07/14/19 07/14/19 18:59 06:59 18:59 Intake Total 100 590 Output Total 110 65 Balance -10 525 Intake: Intake, IV Titration 100 Amount Sodium Chloride 0.9% 1, 100 000 ml @ 100 mls/hr IV . Q10H PATRICA Rx#:[id number] Oral 590 Output: Drainage 110 65 Right Breast 110 65 Other: # Voids 2 2 - Exam PHYSICAL EXAMINATION: GENERAL: The patient is alert and oriented x3, not in any acute distress. Well developed, well nourished. HEENT: Pupils are round and equally reacting to light. EOMI. No scleral icterus. No conjunctival pallor. Normocephalic, atraumatic. No pharyngeal erythema. No thyromegaly. CARDIOVASCULAR: S1 and S2 present. No murmurs, rubs, or gallops. PULMONARY: Chest is clear to auscultation, no wheezing or crackles. ABDOMEN: Soft, nontender, nondistended, normoactive bowel sounds. No palpable organomegaly. MUSCULOSKELETAL: No joint swelling or deformity. EXTREMITIES: No cyanosis, clubbing, or pedal edema. NEUROLOGICAL: Gross neurological examination did not reveal any focal deficits. SKIN: No rashes. - Labs CBC & Chem 7: 07/14/19 06:12 Labs: Abnormal Lab Results - Last 24 Hours (Table) 07/14/19 Range/Units 06:12 RBC 3.21 L (3.80-5.40) m/uL Hgb 9.4 L D (11.4-16.0) gm/dL Hct 28.7 L (34.0-46.0) % Assessment and Plan Assessment: 1. Recent diagnosis of right breast cancer; status post simple right mastectomy with [place] lymph node biopsy; POD #0 - We will recommend incentive spirometry; early ambulation; pain control per your discretion 2. Hypothyroidism; continue with home thyroid replacement therapy 3. Osteoarthritis; continue with current pain control 4. DVT prophylaxis; subcu Lovenox CODE STATUS; full code
--- NOTE | 2019-07-20 13:40 | P.OP ---
Date of Procedure: 07/12/19 Preoperative Diagnosis: Right breast cancer Postoperative Diagnosis: Right breast cancer Procedure(s) Performed: Right simple mastectomy [place] node biopsy Anesthesia: MAGGI Surgeon: Sohan Cervantes Pathology: other (Right breast) Condition: stable Disposition: PACU Description of Procedure: The patient's placed on the operating table in the supine position she received IV sedation and then general anesthesia. Her right breast was prepped and draped usual fashion. The right breast was injected with methylene blue in 4 quadrants. The mastectomy flaps were marked and then the mastectomy flaps were incised with a 15 blade. Left cautery was used to dissect the mastectomy flaps. The fascia created to the level of the clavicle superiorly and the sternum medially the inframammary crease inferiorly and the sella laterally. In the nasal of the sentinel node was found using the neoprobe once the clavipectoral fascia was opened. The sentinel node was sent to pathology. There was still evidence of metastatic disease in the sentinel node. At this point the breast was then removed from the chest wall using electrocautery and the Harmonic scissors. A SIMÓN drain was placed in the mastectomy bed and brought through separate stab incision in the skin was closed in 2 layers using 0 Vicryl suture and 3-0 Monocryl suture. Dermabond dressing applied. Patient was sent to recovery room stable condition.
--- NOTE | 2019-07-23 10:58 | CDI ---
Outpatient Documentation Clarification Form Date: 07/23/19 CDS.[facility] Name: Cynthia Muñoz Phone: If any questions, call Dasha Lozano at [phone] James Name. Pascale Wellington M Admit Date: 07/12/19 Discharge Date: 07/14/19 ATTENTION: The [facility] Coding Staff appreciate your assistance in clarifying documentation. Please respond to the clarification below the line at the bottom and electronically sign. The [facility] Coding staff will review the response and follow-up if needed. Please Note: Queries are made part of the Legal Health Record. If you have any questions, please contact the Property And Casualty Insurance Agent. Dear Dr. Cervantes, Please provide clarification as to the location of the biopsied lymph nodes. In order to follow the national coding guidelines, please clarify if the lymph nodes were deep or superficial. This is according to our CPT fast food assistant restaurant manager below: References for ecommendation #2 - [facility], April 22, 2008 Use the code 67373 only when the operative report documents that the surgeon entered the muscle and removed deep lymph nodes in addition to removing superficial lymph nodes. CPT Sociology Research Assistant, March 2008: To in ascertaining which lymph node excision code to report, the axillary lymph nodes are divided into Levels I through III. Levels II and III would always be deep (code 91796). Level I may be deep (code 77134) or superficial (code 67195), depending on the patient's body habitus. Superficial nodes at most sites would be easily palpable. Since Level I axillary lymph nodes may be deep or superficial, it is important that the depth (ie, deep or superficial) be documented in the medical record to ensure correct coding. Code 87067 or 62021 may involve removal of only one lymph node or a number of lymph nodes, as determined by sentinel lymph node identification by the physician during the dissection or by palpation. Thank you for your kind consideration, Deep axillary lymph node biopsy MTDD
== END 2019-07-14 16:23 | disposition home health service (06) ==
LOC: OR 09:33 → 4SSUR 14:19 → OR 07-14 16:23
PROVIDERS: ATTEND Surgery
DX: C50.911 Malignant neoplasm of unspecified site of right female breast (principal); L76.32 Postprocedural hematoma of skin and subcutaneous tissue following other procedure; R55 Syncope and collapse; E03.9 Hypothyroidism, unspecified; M19.90 Unspecified osteoarthritis, unspecified site; G30.9 Alzheimer's disease, unspecified; F02.80 Dementia in other diseases classified elsewhere, unspecified severity, without behavioral disturbance, psychotic disturbance, mood disturbance, and anxiety; D64.9 Anemia, unspecified; G89.29 Other chronic pain; M54.9 Dorsalgia, unspecified; M54.2 Cervicalgia; I45.10 Unspecified right bundle-branch block; I08.2 Rheumatic disorders of both aortic and tricuspid valves; Z98.890 Other specified postprocedural states; Z90.12 Acquired absence of left breast and nipple; Z85.3 Personal history of malignant neoplasm of breast; Z88.5 Allergy status to narcotic agent; Z98.42 Cataract extraction status, left eye; Z98.41 Cataract extraction status, right eye; Z79.82 Long term (current) use of aspirin; Z79.890 Hormone replacement therapy; Z79.899 Other long term (current) drug therapy; Z87.898 Personal history of other specified conditions; Z90.710 Acquired absence of both cervix and uterus; Z80.1 Family history of malignant neoplasm of trachea, bronchus and lung; Z80.0 Family history of malignant neoplasm of digestive organs; Z80.3 Family history of malignant neoplasm of breast
CPT/HCPCS: 93306; 84484; 85025 ×2; 88342; 88331; 88307; 88341; 38792; 19303; 38525; A9520; J2250; J1644; J1100; J0690; J2405; J2001; J1650 ×2; Q9968; J3010; J2704

== ENCOUNTER 2020-01-06 12:56 | Emergency (ER) | payer MEDICARE ==
[2020-01-06 13:10] VITALS: PULSE 74; RESP 16; TEMP 97.9
--- NOTE | 2020-01-06 13:55 | XR ---
EXAMINATION TYPE: XR chest 2V DATE OF EXAM: 01/06/2020 COMPARISON: 03/11/2017 HISTORY: Shortness of breath TECHNIQUE: Frontal and lateral views of the chest are obtained. FINDINGS: Scattered senescent parenchymal changes noted. Hyperinflation compatible with COPD. No evidence for infiltrate. No evidence for atelectasis. Heart size is stable. Mediastinal structures are stable and grossly unremarkable. No evidence for hilar prominence. Degenerative changes dorsal spine. IMPRESSION: 1. No evidence for acute pulmonary disease.
--- NOTE | 2020-01-06 14:01 | ED ---
General Adult HPI - General Source: patient, RN notes reviewed, old records reviewed Mode of arrival: wheelchair Limitations: no limitations <Omid Man - Last Filed: 01/06/20 15:00> <Omid Sinha - Last Filed: 01/06/20 16:00> - General Chief complaint: Shortness of Breath Stated complaint: hyperventilating Time Seen by Provider: 01/06/20 13:05 - History of Present Illness Initial comments: This is an 89-year-old female presents emergency Department with L sinus disease. states that he brings her in today because she's been having episodes every 2 days of hyperventilation and then she gets very lightheaded takes about a half an hour for these episodes to resolve. Patient does not have any complaints of pain according to the there has been no fever. states she has not appeared to be having any difficulty breathing in between episodes. There is been no history of abdominal pain is been no nausea vomiting. Patient states she has no pain currently. states all the symptoms started about 3 months prior to arrival to the emergency department. Patient currently is having no symptoms (Omid Man) - Related Data Home Medications Medication Instructions Recorded Confirmed Aspirin EC [Ecotrin Low Dose] 81 mg PO DAILY 03/11/17 01/06/20 Cyanocobalamin [Vitamin B-12] 500 mcg PO HS 03/11/17 01/06/20 Multivitamins, Thera [Multivitamin 1 tab PO DAILY 03/11/17 01/06/20 (formulary)] Glucosam/Brando-Msm1/C/Lars/Bosw 1 each PO DAILY 03/15/17 01/06/20 [Glucosamine-Chondroitin Tablet] Memantine [Namenda] 10 mg PO BID 07/10/19 01/06/20 Fish Oil/Dha/Epa [Fish Oil 1,200 1 cap PO BID 01/06/20 01/06/20 mg Fish Oil] Flaxseed Oil 1,000 mg PO BID 01/06/20 01/06/20 Ibuprofen 200 mg PO BID 01/06/20 01/06/20 Levothyroxine Sodium 88 mcg PO DAILY 01/06/20 01/06/20 Previous Rx's Medication Instructions Recorded Amoxic-Pot Clav 875-125Mg 1 tab PO Q12HR #10 tablet 01/06/20 [Augmentin 875-125] Allergies Allergy/AdvReac Type Severity Reaction Status Date / Time meperidine [From Demerol] Allergy Rash/Hives Verified 01/06/20 14:15 Review of Systems ROS Other: All systems not noted in ROS Statement are negative. <Omid Man - Last Filed: 01/06/20 15:00> ROS Other: All systems not noted in ROS Statement are negative. <Omid Sinha - Last Filed: 01/06/20 16:00> ROS Statement: Those systems with pertinent positive or pertinent negative responses have been documented in the HPI. Past Medical History Past Medical History: Cancer, Memory Impairment, Osteoarthritis (OA), Thyroid Disorder Additional Past Medical History / Comment(s): breast cancer, chronic back pain and neck pain, dizzy spells History of Any Multi-Drug Resistant Organisms: None Reported Past Surgical History: Bladder Surgery, Breast Surgery, Hysterectomy Additional Past Surgical History / Comment(s): left mastectomy, eloy cataracts Past Anesthesia/Blood Transfusion Reactions: Motion Sickness Additional Past Anesthesia/Blood Transfusion Reaction / Comment(s): gets dizzy if she lays down flat Past Psychological History: No Psychological Hx Reported Smoking Status: Never smoker Past Alcohol Use History: None Reported Past Drug Use History: None Reported - Past Family History Father Family Medical History: Cancer Additional Family Medical History / Comment(s): Lung Mother Family Medical History: Cancer Additional Family Medical History / Comment(s): Colon metastasize to liver Sister(s) Family Medical History: Cancer Additional Family Medical History / Comment(s): Breast <Omid Man - Last Filed: 01/06/20 15:00> General Exam Limitations: no limitations <Omid Man - Last Filed: 01/06/20 15:00> - General Exam Comments Initial Comments: GENERAL: Patient is well-developed and well-nourished. Patient is nontoxic and well- hydrated and is in no acute distress. ENT: Neck is soft and supple. No significant lymphadenopathy is noted. Oropharynx is clear. Moist mucous membranes. Neck has full range of motion without eliciting any pain. EYES: The sclera were anicteric and conjunctiva were pink and moist. Extraocular movements were intact and pupils were equal round and reactive to light. Eyelids were unremarkable. PULMONARY: Unlabored respirations. Good breath sounds bilaterally. No audible rales rhonchi or wheezing was noted. CARDIOVASCULAR: Regular rate and rhythm no murmurs are heard ABDOMEN: Soft and nontender with normal bowel sounds. No palpable organomegaly was noted. There is no palpable pulsatile mass. SKIN: Skin is clear with no lesions or rashes and otherwise unremarkable. NEUROLOGIC: Patient is alert and oriented 2. Cranial nerves II through XII are grossly intact. Motor and sensory are also intact. Normal speech, volume and content. Symmetrical smile. MUSCULOSKELETAL: Normal extremities with adequate strength and full range of motion. No lower extremity swelling or edema. No calf tenderness. LYMPHATICS: No significant lymphadenopathy is noted PSYCHIATRIC: Normal psychiatric evaluation. (Omid Man) Course Vital Signs 01/06/20 01/06/20 13:07 13:30 Temperature 97.9 F Pulse Rate 74 Respiratory 16 16 Rate Blood Pressure 136/70 O2 Sat by Pulse 94 L Oximetry Medical Decision Making - Lab Data Result diagrams: 01/06/20 14:24 01/06/20 14:24 <Omid Man - Last Filed: 01/06/20 15:00> - Lab Data Result diagrams: 01/06/20 14:24 01/06/20 14:24 - Radiology Data Radiology results: report reviewed (CT brain and chest x-ray are negative for significant acute disease), image reviewed <Omid Sinha - Last Filed: 01/06/20 16:00> - Medical Decision Making EKG shows sinus rhythm with occasional PAC at 60 bpm WV interval 164 QRS is 142 QT interval 450 QTC is 478. Patient's EKG shows a right bundle branch block. Dr. Sinha will be taking over the care of this patient at 3 PM (Omid Man) 89 female DF for evaluation of occasional syncopal events. Hyperventilation proceeds these events, no recurrent symptoms here in the ER lab values are normal CT scan just showing negative, UTI on urinalysis, patient can be discha rged home (Omid Sinha) - Lab Data Lab Results 01/06/20 01/06/20 01/06/20 Range/Units 14:08 14:24 14:24 WBC 6.1 (3.8-10.6) k/uL RBC 4.92 (3.80-5.40) m/uL Hgb 13.8 (11.4-16.0) gm/dL Hct 42.7 (34.0-46.0) % MCV 86.7 (80.0-100.0) fL MCH 28.1 (25.0-35.0) pg MCHC 32.4 (31.0-37.0) g/dL RDW 14.3 (11.5-15.5) % Plt Count 191 (150-450) k/uL Neutrophils % 43 % Lymphocytes % 36 % Monocytes % 7 % Eosinophils % 9 % Basophils % 1 % Neutrophils # 2.7 (1.3-7.7) k/uL Lymphocytes # 2.2 (1.0-4.8) k/uL Monocytes # 0.4 (0-1.0) k/uL Eosinophils # 0.5 (0-0.7) k/uL Basophils # 0.1 (0-0.2) k/uL PT 9.9 (9.0-12.0) sec INR 1.0 (<1.2) APTT 22.5 (22.0-30.0) sec Sodium (137-145) mmol/L Potassium (3.5-5.1) mmol/L Chloride (98-107) mmol/L Carbon Dioxide (22-30) mmol/L Anion Gap mmol/L BUN (7-17) mg/dL Creatinine (0.52-1.04) mg/dL Est GFR (CKD-EPI)AfAm (>60 ml/min/1.73 sqM) Est GFR (CKD-EPI)NonAf (>60 ml/min/1.73 sqM) Glucose (74-99) mg/dL Plasma Lactic Acid Vivek (0.7-2.0) mmol/L Calcium (8.4-10.2) mg/dL Total Bilirubin (0.2-1.3) mg/dL AST (14-36) U/L ALT (4-34) U/L Alkaline Phosphatase (38-126) U/L Troponin I (0.000-0.034) ng/mL Total Protein (6.3-8.2) g/dL Albumin (3.5-5.0) g/dL Urine Color Yellow Urine Appearance Cloudy H (Clear) Urine pH 6.5 (5.0-8.0) Ur Specific Minter 1.017 (1.001-1.035) Urine Protein Negative (Negative) Urine Glucose (UA) Negative (Negative) Urine Ketones Negative (Negative) Urine Blood Negative (Negative) Urine Nitrite Positive H (Negative) Urine Bilirubin Negative (Negative) Urine Urobilinogen <2.0 (<2.0) mg/dL Ur Leukocyte Esterase Small H (Negative) Urine RBC 1 (0-5) /hpf Urine WBC 6 H (0-5) /hpf Ur Squamous Epith Cells 1 (0-4) /hpf Urine Bacteria Moderate H (None) /hpf Urine Mucus Occasional H (None) /hpf 01/06/20 01/06/20 01/06/20 Range/Units 14:24 14:24 14:24 WBC (3.8-10.6) k/uL RBC (3.80-5.40) m/uL Hgb (11.4-16.0) gm/dL Hct (34.0-46.0) % MCV (80.0-100.0) fL MCH (25.0-35.0) pg MCHC (31.0-37.0) g/dL RDW (11.5-15.5) % Plt Count (150-450) k/uL Neutrophils % % Lymphocytes % % Monocytes % % Eosinophils % % Basophils % % Neutrophils # (1.3-7.7) k/uL Lymphocytes # (1.0-4.8) k/uL Monocytes # (0-1.0) k/uL Eosinophils # (0-0.7) k/uL Basophils # (0-0.2) k/uL PT (9.0-12.0) sec INR (<1.2) APTT (22.0-30.0) sec Sodium 135 L (137-145) mmol/L Potassium 4.6 (3.5-5.1) mmol/L Chloride 106 (98-107) mmol/L Carbon Dioxide 21 L (22-30) mmol/L Anion Gap 8 mmol/L BUN 33 H (7-17) mg/dL Creatinine 1.46 H (0.52-1.04) mg/dL Est GFR (CKD-EPI)AfAm 37 (>60 ml/min/1.73 sqM) Est GFR (CKD-EPI)NonAf 32 (>60 ml/min/1.73 sqM) Glucose 110 H (74-99) mg/dL Plasma Lactic Acid Vivek 1.2 (0.7-2.0) mmol/L Calcium 9.8 (8.4-10.2) mg/dL Total Bilirubin 0.6 (0.2-1.3) mg/dL AST 34 (14-36) U/L ALT 23 (4-34) U/L Alkaline Phosphatase 56 (38-126) U/L Troponin I <0.012 (0.000-0.034) ng/mL Total Protein 7.2 (6.3-8.2) g/dL Albumin 4.1 (3.5-5.0) g/dL Urine Color Urine Appearance (Clear) Urine pH (5.0-8.0) Ur Specific Minter (1.001-1.035) Urine Protein (Negative) Urine Glucose (UA) (Negative) Urine Ketones (Negative) Urine Blood (Negative) Urine Nitrite (Negative) Urine Bilirubin (Negative) Urine Urobilinogen (<2.0) mg/dL Ur Leukocyte Esterase (Negative) Urine RBC (0-5) /hpf Urine WBC (0-5) /hpf Ur Squamous Epith Cells (0-4) /hpf Urine Bacteria (None) /hpf Urine Mucus (None) /hpf Disposition <Omid Man - Last Filed: 01/06/20 15:00> Is patient prescribed a controlled substance at d/c from ED?: No <Omid Sinha - Last Filed: 01/06/20 16:00> Clinical Impression: UTI (urinary tract infection), Syncope Disposition: HOME SELF-CARE Condition: Good Instructions (If sedation given, give patient instructions): Urinary Tract Infection in Women (ED) Prescriptions: Amoxic-Pot Clav 875-125Mg [Augmentin 875-125] 1 tab PO Q12HR #10 tablet Referrals: Caden Chen MD [Primary Care Provider] - 1-2 days
[2020-01-06 14:31] LABS: Appearance,Urine Cloudy (Clear); Bacteria,Urine Moderate /hpf; Bilirubin,Urine Negative (Negative); Blood,Urine Negative (Negative); Color,Urine Yellow; Glucose,Urine (UA) Negative (Negative); Ketones,Urine Negative (Negative); Leukocyte Esterase,Urine Small (Negative); Mucus,Urine Occasional /hpf; Nitrite,Urine Positive (Negative); PH, Urine 6.5 (5.0-8.0); Protein,Urine Negative (Negative); RBC,Urine 1 /hpf (0-5); Specific Gravity,Urine 1.017 (1.001-1.035); Squamous Epithelial Cell,Urine 1 /hpf (0-4); Urobilinogen,Urine <2.0 mg/dL (<2.0); WBC,Urine 6 /hpf (0-5)
[2020-01-06 14:44] LABS: Basophils # (A) 0.1 k/uL (0-0.2); Basophils % (A) 1 %; Eosinophils # (A) 0.5 k/uL (0-0.7); Eosinophils % (A) 9 %; HCT 42.7 % (34.0-46.0); HGB 13.8 gm/dL (11.4-16.0); Lymphocytes # (A) 2.2 k/uL (1.0-4.8); Lymphocytes % (A) 36 %; MCH 28.1 pg (25.0-35.0); MCHC 32.4 g/dL (31.0-37.0); MCV 86.7 fL (80.0-100.0); Mean Platelet Volume 7.3; Monocytes # (A) 0.4 k/uL (0-1.0); Monocytes % (A) 7 %; Neutrophils # (A) 2.7 k/uL (1.3-7.7); Neutrophils % (A) 43 %; Platelet Count 191 k/uL (150-450); RBC 4.92 m/uL (3.80-5.40); RDW 14.3 % (11.5-15.5); WBC 6.1 k/uL (3.8-10.6)
[2020-01-06 14:52] LABS: Albumin 4.1 g/dL (3.5-5.0); Calcium 9.8 mg/dL (8.4-10.2); Partial Thromboplastin Time 22.5 sec (22.0-30.0); Potassium 4.6 mmol/L (3.5-5.1); Prothrombin Time 9.9 sec (9.0-12.0); Total Bilirubin 0.6 mg/dL (0.2-1.3); Total Protein 7.2 g/dL (6.3-8.2)
--- NOTE | 2020-01-06 14:57 | CT ---
EXAMINATION TYPE: CT brain wo con DATE OF EXAM: 01/06/2020 COMPARISON: 03/11/17 HISTORY: Hyperventilating and dizziness CT DLP: 1099.[address] of the brain was performed. The ventricles, basal cisterns and sulci overlying the cerebral convexities demonstrate mild enlargem ent. There is no evidence for intracranial hemorrhage or sulcal effacement. There is decreased attenuation about the periventricular white matter and deep white matter of both c erebral hemispheres, compatible with chronic small vessel ischemia. Differential diagnosis does inclu de demyelination. No mass effects are seen.No midline shift. Osseous calvarium is intact. If symptoms persist consider MRI. IMPRESSION: 1. Age related atrophic and chronic small vessel ischemic change without acute intracranial process s een at this time.
[2020-01-06] MEDS ORDERED: cefTRIAXone IN SWFI 1,000 MG/10 ML SYRINGE IVP STA (15:44)
[2020-01-06] MEDS ORDERED: AMOXIC-POT CLAV 875MG STARTER PACK 2 TAB BTL PO STA (15:57)
[2020-01-06] MEDS ORDERED: AMOXIC-POT CLAV 875-125MG 1 EACH TAB PO STA (15:57)
[2020-01-06 16:02] VITALS: BP 141/78
== END 2020-01-06 16:02 | disposition home or self-care (01) ==
LOC: EC 12:56
DX: R55 Syncope and collapse (principal); N39.0 Urinary tract infection, site not specified; R06.4 Hyperventilation; E07.9 Disorder of thyroid, unspecified; M19.90 Unspecified osteoarthritis, unspecified site; Z79.82 Long term (current) use of aspirin; Z79.890 Hormone replacement therapy; Z79.899 Other long term (current) drug therapy; Z88.5 Allergy status to narcotic agent; Z90.12 Acquired absence of left breast and nipple; Z85.3 Personal history of malignant neoplasm of breast; Z80.0 Family history of malignant neoplasm of digestive organs
CPT/HCPCS: 36415; 93005; 80053; 83605; 84484; 85025; 85610; 85730; 81001; 71046; 70450; 99285; 96374; J0696

== ENCOUNTER 2020-01-16 09:31 | Emergency (ER) | payer MEDICARE ==
[2020-01-16 09:35] VITALS: RESP 18; TEMP 97.8
--- NOTE | 2020-01-16 10:07 | ED ---
Fall HPI - General Chief Complaint: Fall Stated Complaint: fall/head lac Time Seen by Provider: 01/16/20 09:43 Source: patient, family, RN notes reviewed, old records reviewed Mode of arrival: wheelchair - History of Present Illness Initial Comments: Patient is a 89-year-old female with a history of dementia who presents emergency department today after tripping and falling in the bathroom and hitting her head on the east time of floor. Patient is a poor historian but her states that there is no significant loss of consciousness. He got the Patient up and was resting in bed. Shortly afterward he noticed the Patient had evidence of bleeding and a laceration to the back of the scalp. Patient's reports that she has been at baseline and denies any changes in her mental status. Patient reports no neck pain or any other pain related to the fall. - Related Data Home Medications Medication Instructions Recorded Confirmed Aspirin EC [Ecotrin Low Dose] 81 mg PO DAILY 03/11/17 01/06/20 Cyanocobalamin [Vitamin B-12] 500 mcg PO HS 03/11/17 01/06/20 Multivitamins, Thera [Multivitamin 1 tab PO DAILY 03/11/17 01/06/20 (formulary)] Glucosam/Brando-Msm1/C/Lars/Bosw 1 each PO DAILY 03/15/17 01/06/20 [Glucosamine-Chondroitin Tablet] Memantine [Namenda] 10 mg PO BID 07/10/19 01/06/20 Fish Oil/Dha/Epa [Fish Oil 1,200 1 cap PO BID 01/06/20 01/06/20 mg Fish Oil] Flaxseed Oil 1,000 mg PO BID 01/06/20 01/06/20 Ibuprofen 200 mg PO BID 01/06/20 01/06/20 Levothyroxine Sodium 88 mcg PO DAILY 01/06/20 01/06/20 Previous Rx's Medication Instructions Recorded Amoxic-Pot Clav 875-125Mg 1 tab PO Q12HR #10 tablet 01/06/20 [Augmentin 875-125] Allergies Allergy/AdvReac Type Severity Reaction Status Date / Time meperidine [From Demerol] Allergy Rash/Hives Verified 01/16/20 09:35 Review of Systems ROS Statement: Those systems with pertinent positive or pertinent negative responses have been documented in the HPI. ROS Other: All systems not noted in ROS Statement are negative. Past Medical History Past Medical History: Cancer, Memory Impairment, Osteoarthritis (OA), Thyroid Disorder Additional Past Medical History / Comment(s): breast cancer, chronic back pain and neck pain, dizzy spells History of Any Multi-Drug Resistant Organisms: None Reported Past Surgical History: Bladder Surgery, Breast Surgery, Hysterectomy Additional Past Surgical History / Comment(s): left mastectomy, eloy cataracts Past Anesthesia/Blood Transfusion Reactions: Motion Sickness Additional Past Anesthesia/Blood Transfusion Reaction / Comment(s): gets dizzy if she lays down flat Past Psychological History: No Psychological Hx Reported Smoking Status: Never smoker Past Alcohol Use History: None Reported Past Drug Use History: None Reported - Past Family History Father Family Medical History: Cancer Additional Family Medical History / Comment(s): Lung Mother Family Medical History: Cancer Additional Family Medical History / Comment(s): Colon metastasize to liver Sister(s) Family Medical History: Cancer Additional Family Medical History / Comment(s): Breast General Exam - General Exam Comments Initial Comments: Patient is an 89-year-old female. History of dementia. At baseline. Alert and oriented 2 Limitations: no limitations General appearance: alert, in no apparent distress Head exam: Present: atraumatic, normocephalic, normal inspection, other (Patient has a contusion over the dysuria scalp. Evidence of linear laceration .) Eye exam: Present: normal appearance, PERRL, EOMI. Absent: scleral icterus, conjunctival injection, periorbital swelling ENT exam: Present: normal exam, mucous membranes moist Neck exam: Present: normal inspection. Absent: tenderness, meningismus, lymphadenopathy Respiratory exam: Present: normal lung sounds bilaterally. Absent: respiratory distress, wheezes, rales, rhonchi, stridor Cardiovascular Exam: Present: regular rate, normal rhythm, normal heart sounds. Absent: systolic murmur, diastolic murmur, rubs, gallop, clicks GI/Abdominal exam: Present: soft, normal bowel sounds. Absent: distended, tenderness, guarding, rebound, rigid Extremities exam: Present: normal inspection, full ROM, normal capillary refill. Absent: tenderness, pedal edema, joint swelling, calf tenderness Back exam: Present: normal inspection Neurological exam: Present: alert, oriented X3, CN II-XII intact Psychiatric exam: Present: normal affect, normal mood Skin exam: Present: warm, dry, intact, normal color. Absent: rash Course Vital Signs 01/16/20 01/16/20 09:33 11:29 Temperature 97.8 F Pulse Rate 66 72 Respiratory 18 18 Rate Blood Pressure 121/80 132/76 O2 Sat by Pulse 98 98 Oximetry Procedures - Laceration Laceration #1 Site: scalp Size (cm): 2 Description: linear Depth: simple, single layer Pre-repair: wound explored, irrigated extensively Type of Sutures: other (gurdeep) Number of Sutures: 3 Patient Tolerated Procedure: well, no complications Medical Decision Making - Medical Decision Making 81-year-old female presents restarted after trip and fall the bathroom hitting the back of her head on the floor. Patient has history of dementia and is at baseline according to . She denies any other complaints of pain besides a headache. Patient has a posterior scalp hematoma with laceration. Laceration was closed with [address] of the brain and C-spine reviewed and negative for acute fracture. No signs of intracranial bleeding. There is evidence of degenerative changes in the cervical spine. I discussed the following with the Patient and patient's . Discussed monitoring for infection of the gurdeep. Discussed the Patient to take Tylenol for pain and to be monitored and there is any signs of mental status change return probably to the ER. Patient's family and Patient understand treatment plan will comply. - Radiology Data Radiology results: report reviewed CT of the wrist is mild to moderate posterior scalp contusion. Stable moderate bifrontal atrophy and some cerebral atrophy resulting in mild ventricular prominence. No acute intracranial hemorrhage is seen. C-spine shows no acute fracture of the cervical spine. Moderate spondylitic change. Grade 1 anterolisthesis of C3-C4 C4-C5 and C7 T1. There are seems to be flattening of the trachea suggesting tracheomalacia. Clinically correlate. Disposition Clinical Impression: Fall, Head contusion Disposition: HOME SELF-CARE Condition: Good Instructions (If sedation given, give patient instructions): Head Injury (ED), Staple Care (ED) Additional Instructions: Please use medication as discussed. Patient should keep the gurdeep in place and return in 10 days to have them removed. Soap and water over the area. Take Tylenol and Motrin for headache and pain. Please follow up with family doctor if symptoms have not improved over the next two days. Please return to the emergency room if your symptoms increase or worsen or for any other concerns. Is patient prescribed a controlled substance at d/c from ED?: No Referrals: Caden Chen MD [Primary Care Provider] - 1-2 days Time of Disposition: 11:08
--- NOTE | 2020-01-16 10:27 | CT ---
EXAMINATION TYPE: CT brain tonyine wo con DATE OF EXAM: 01/16/2020 COMPARISON: Brain 01/06/2020 HISTORY: 89 year-old female possible syncopal episode with fall and blow to back of head. Fall, confu omid. CT DLP: 1290.3 mGycm Automated exposure control for dose reduction was used. Technique: Examination of the head was done in axial plane without intravenous contrast. Coronal and sagittal reconstructions performed. CT of the cervical spine was obtained in axial plane without intravenous injection of contrast mater ial. Coronal and sagittal reformatted images were obtained from the axial views for evaluation of f ractures, spinal alignment and canal. FINDINGS: Head: There is no evidence of acute intracranial hemorrhage, acute ischemic changes, mass, mass-effect, or extra-axial fluid collection. There is no effacement of cerebral sulci or basal subarachnoid cister ns. There is no midline shift. Rudolph-white matter distinction is preserved. Moderate bifrontal atrophy redemonstrated. Mild ventricular prominence secondary to central cerebral atrophy is unchanged. Small to moderate left posterior scalp contusion without underlying calvarial fracture. 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 Paranasal sinuses a nd mastoid air cells well pneumatized. Visualized orbits and globes show no gross abnormality. Cerume n in left external auditory canal. Cervical spine: No cranial cervical junction abnormality, predental space widening, or prevertebral soft tissue swell ing. Degenerative changes at the C1 dens articulation. Straightening of the normal cervical lordosis. Trace grade 1 anterolisthesis at C3-C4, C4-C5, and C7-T1. Moderate to advanced degenerative disc disease particularly at C6-C7. Scattered facet and uncovertebr al joint degenerative change. No acute fracture of the cervical spine. Artifact from the patient's shoulders limits assessment of the spinal canal from C5-C6 and below. At C3-C4, moderate left neural foraminal stenosis. At C4-C5, mild to moderate left neural foraminal stenosis. At C5-C6, mild bilateral neural foraminal stenosis. There seems to be some flattening of the trachea, refer to axial image 93. This may reflect tracheoma lacia. Sagittal and coronal reformatted images confirm above findings. COMBINED IMPRESSION: 1. Mild to moderate posterior scalp contusion. Stable moderate bifrontal atrophy and some central cer ebral atrophy resulting in mild ventricular prominence. No acute intracranial abnormality seen. 2. No acute fracture of the cervical spine. Moderate spondylotic change. Degenerative grade 1 anterol isthesis at C3-C4, C4-C5, and C7-T1. 3. There seems to be flattening of the trachea, axial image 93, suggesting tracheomalacia. Clinically correlate.
[2020-01-16] MEDS ORDERED: ACETAMINOPHEN TAB 500 MG TAB PO STA (11:08)
[2020-01-16 11:31] VITALS: BP 132/76; PULSE 72
== END 2020-01-16 11:29 | disposition home or self-care (01) ==
LOC: EC 09:31
DX: S01.01XA Laceration without foreign body of scalp, initial encounter (principal); E07.9 Disorder of thyroid, unspecified; M19.90 Unspecified osteoarthritis, unspecified site; Z79.1 Long term (current) use of non-steroidal anti-inflammatories (NSAID); Z79.82 Long term (current) use of aspirin; Z79.890 Hormone replacement therapy; Z90.12 Acquired absence of left breast and nipple; Z98.42 Cataract extraction status, left eye; Z98.41 Cataract extraction status, right eye; Z88.6 Allergy status to analgesic agent; Z85.3 Personal history of malignant neoplasm of breast; Z80.1 Family history of malignant neoplasm of trachea, bronchus and lung; Z80.3 Family history of malignant neoplasm of breast; Z80.8 Family history of malignant neoplasm of other organs or systems; W01.198A Fall on same level from slipping, tripping and stumbling with subsequent striking against other object, initial encounter; Y93.89 Activity, other specified; Y92.002 Bathroom of unspecified non-institutional (private) residence as the place of occurrence of the external cause
CPT/HCPCS: 12001; 70450; 72125; 99284